=== PATIENT | female | born 1955 | race Caucasian/White ===

== ENCOUNTER 2017-02-26 22:48 | Inpatient (IN) | payer OTHER ==
[~2017-02-26] VITALS: Ht 167.6 cm; Wt 92.0 kg
[2017-02-26 22:33] VITALS: O2SAT 100
[~2017-02-26 22:48] MED LIST: AMIT10TA13; ATOR10 PO; BUDE300T PO; COZA50TA PO; FENO1TAB76 PO; FENT50DI TD; INSULIN PUMP SQ; NITR4.9S3; PANT20 PO; PLAV75TA PO; SYNT25TA; TOPR25TA2 PO
[2017-02-26 22:51] VITALS: BP 71/42; PULSE 98; RESP 16; O2SAT 96
[2017-02-26] MEDS ORDERED: ETOMIDATE 20 MG/10 ML VIAL ONE (22:53)
[2017-02-26 23:05] VITALS: BP 104/57; PULSE 113; RESP 16; O2SAT 100
[2017-02-26 23:09] VITALS: BP 119/59; PULSE 119; RESP 16; O2SAT 97
[2017-02-26] MEDS ORDERED: PROPOFOL 1000 MG/100 ML INJ 100 ML ONE (23:12)
[2017-02-26 23:25] VITALS: BP 103/50; PULSE 99; RESP 14; O2SAT 100
[2017-02-26] MEDS ORDERED: ETOMIDATE 20 MG/10 ML VIAL IV PUSH ONE (23:30)
[2017-02-26] MEDS ORDERED: SODIUM CHLOR 0.9% 1000 ML INJ 1,000 ML IV ONE (23:30)
[2017-02-26] MEDS ORDERED: SUCCINYLCHOLINE CHLORIDE 200 MG/10 ML VIAL IV PUSH ONE (23:30)
[2017-02-26] MEDS ORDERED: PROPOFOL 1000 MG/100 ML INJ 100 ML IV SCH (23:30)
[2017-02-26 23:42] VITALS: BP 139/65; PULSE 112; RESP 14; TEMP 94.8; O2SAT 100
[2017-02-26 23:45] LABS: AUTOMATED NEUTROPHIL # 2.5 TH/MM3 (1.8-7.7); BASOPHIL % 0.4 % (0.0-2.0); EOSINOPHIL % 0.4 % (0.0-4.0); HEMATOCRIT 25.5 % (35.0-46.0); HEMO FLAGS DIFF FINAL; LYMPH % 31.6 % (9.0-44.0); LYMPHOCYTE # 1.4 TH/MM3 (1.0-4.8); MEAN CELL VOLUME 85.9 FL (80.0-100.0); MEAN CORPUSCULAR HEMOGLOBIN 28.2 PG (27.0-34.0); MEAN CORPUSCULAR HGB CONC 32.8 % (32.0-36.0); NEUT % 55.6 % (16.0-70.0); PLATELET COUNT 223 TH/MM3 (150-450); RED BLOOD COUNT 2.97 MIL/MM3 (4.00-5.30); WHITE BLOOD COUNT 4.6 TH/MM3 (4.0-11.0)
[2017-02-26 23:49] LABS: BLOOD, URINE NEG (NEG); COMMENT (UR) CATH-CULT NOT IND; CULTURE IF INDICATED CATH CULTURE NOT IND; GLUCOSE,URINE NEG (NEG); KETONE, URINE NEG (NEG); MUCUS URINE FEW /lpf (OCC); NITRITE,URINE NEG (NEG); PH, URINE 5.5 (5.0-8.5); URINE COLOR YELLOW (YELLW/STRAW)
[2017-02-26 23:50] LABS: ANION GAP 12 MEQ/L (5-15); BICARBONATE 22.5 MEQ/L (21.0-32.0); BLOOD UREA NITROGEN 21 MG/DL (7-18); CHLORIDE 104 MEQ/L (98-107); GLOMERULAR FILTRATION RATE 35 ML/MIN (>89); POTASSIUM 3.5 MEQ/L (3.5-5.1); SODIUM (NA) 138 MEQ/L (136-145)
[2017-02-26 23:55] LABS: BLOOD GAS BASE EXCESS -3.2 mmol/L (-2-2); BLOOD GAS CARBOXYHEMOGLOBIN 0.9 % (0-4); BLOOD GAS HCO3 21 mmol/L (22-26); BLOOD GAS METHEMOGLOBIN 1.2 % (0-2); BLOOD GAS O2 HGB SATURATION 96 % (90-100); BLOOD GAS OXYGEN CONTENT 13.8 Vol % (12.0-20.0); BLOOD GAS PCO2 37 mmHg (38-42); BLOOD GAS PO2 160 mmHG (61-120); CRITICAL VALUE NO; DRAW SITE RT BRACHIAL; FIO2 50 %; NUMBER OF ARTERIAL PUNCTURES 1; OXYGEN DEVICE VENTILATOR; STAT YES; TEMP CORR TO 98.6; VENT SETTINGS AC14/550/5PEEP
--- NOTE | 2017-02-26 23:56 | HHI.HP ---
[facility] Service Critical Care Medicine Primary Care Physician Keon Palmer MD, PhD Admission Diagnosis acute resp failure, unresponsive Diagnosis: Travel History International Travel<30 Days: No Contact w/Intl Traveler <30 Da: No Traveled to Known Affected Are: No History of Present Illness 61-year-old female with past medical history of diabetes coronary artery disease dyslipidemia hypothyroidism previously hyperthyroidism treated with radioactive iodine, presents now with altered mental status and unresponsiveness. She was intubated in the emergency department for airway protection as well severe hypoxemia. She presented hypotensive however shortly after intubation and stabilization of her airway and oxygenation her blood pressure improved with a MAP above 65. Patient is comatose unresponsive and no history obtainable at this time Review of Systems ROS Unable to obtain due to patient's mental status and intubation Past Family Social History Allergies: Coded Allergies: Aspirin (Verified Allergy, Severe, 09/01/15) Nonsteroidal Anti-Inflammatory Agts (Verified Allergy, Severe, 09/01/15) Penicillin (Verified Allergy, Severe, 09/01/15) Past Medical History Coronary artery disease Diabetes mellitus with insulin pump Dyslipidemia Past Surgical History Multiple tendon the knee shoulder surgeries Reported Medications Reported Meds & Active Scripts Active Reported Synthroid (Levothyroxine Sodium) 200 Mcg Tab 200 Mcg PO DAILY Bupropion Sr 12 HR (Bupropion ER 12 HR (Smoking Deterrent)) 150 Mg Tab 300 Mg PO DAILY Take 1 tablet daily x 3 days then twice daily thereafter. Keflex (Cephalexin) 250 Mg Cap 500 Mg PO Q6H Bactrim DS (Sulfamethoxazole-Trimethoprim) 800-160 Mg Tab 1 Tab PO BID [Insulin Pump] .8 SQ DIRECTED HUMALOG BASAL INFUSION .8/HR WITH PRN BOLUSES Active Ordered Medications Current Medications Medications (Trade) Dose Ordered Sig/Rusty Route PRN Reason Start Time Stop Time Status Last Admin Dose Admin Sodium Chloride (NS 1000 ml Inj) 1,000 ml @ 84 mls/hr [id number] IV 02/26/17 23:56 02/27/17 00:22 Sodium Chloride (NS Flush) 2 ml UNSCH PRN .XX FLUSH AFTER USING IV ACCESS 02/27/17 00:00 Sodium Chloride (NS Flush) 2 ml BID .XX 02/27/17 09:00 Acetaminophen (Tylenol) 650 mg Q6H PRN PO PAIN 1-10 AND/OR FEVER >101F 02/27/17 00:00 Morphine Sulfate (Morphine Inj) 2 mg Q2H PRN IV PAIN SCALE 6 TO 10 02/27/17 00:00 Famotidine (Pepcid Inj) 20 mg Q12HR IV PUSH 02/27/17 09:00 Lorazepam (Ativan Inj) 2 mg Q4H PRN IV Agitation/Sedation 02/27/17 00:00 Ondansetron HCl (Zofran Inj) 4 mg Q6H PRN IV NAUSEA OR VOMITING 02/27/17 00:00 Metoclopramide HCl (Reglan Inj) 10 mg Q6H PRN IV NAUSEA OR VOMITING 02/27/17 00:00 Heparin Sodium (Porcine) (Heparin Inj) 5,000 units Q8H SQ 02/27/17 00:00 02/27/17 00:22 Miscellaneous Information 1 Q361D XX 02/27/17 00:00 Chlorhexidine Gluconate (Chlorhexidine 2% Cloth) 3 pack Taper DAILY@04 TOP 02/27/17 04:00 02/23/18 03:59 Chlorhexidine Gluconate (Chlorhexidine 2% Cloth) 3 pack UNSCH PRN TOP HYGIENIC CARE 02/27/17 00:00 Senna/Docusate Sodium (Ankita-Colace) 1 tab BID PO 02/27/17 09:00 Magnesium Hydroxide (Milk Of Magnesia Liq) 30 ml Q12H PRN PO MILD - MODERATE CONSTIPATION 02/27/17 00:00 Sennosides (Senokot) 17.2 mg Q12H PRN PO MODERATE - SEVERE CONSTIPATION 02/27/17 00:00 Bisacodyl (Dulcolax Supp) 10 mg DAILY PRN RECTAL SEVERE CONSITIPATION 02/27/17 00:00 Lactulose 30 ml 30 ml DAILY PRN PO SEVERE CONSITIPATION 02/27/17 00:00 Propofol (Diprivan 1000 Mg/100ml Inj) 100 ml @ 0 mls/hr TITRATE IV 02/27/17 00:00 Family History Noncontributory Social History Negative for alcohol smoking and illicit drug Physical Exam Vital Signs Vital Signs Date Time Temp Pulse Resp B/P Pulse Ox O2 Delivery O2 Flow Rate FiO2 02/26/17 23:42 94.8 112 14 139/65 100 02/26/17 23:25 99 14 103/50 100 02/26/17 23:10 50 5/29/17 23:09 119 16 119/59 97 02/26/17 23:05 113 16 104/57 100 02/26/17 23:04 16 02/26/17 22:51 98 16 71/42 96 02/26/17 22:33 100 50 Physical Exam GENERAL: Obese comatose patient SKIN: Warm and dry. HEAD: Normocephalic. EYES: No scleral icterus. No injection or drainage. NECK: Supple, trachea midline. No JVD or lymphadenopathy. CARDIOVASCULAR: Regular rate and rhythm without murmurs, gallops, or rubs. RESPIRATORY: Breath sounds equal bilaterally. No accessory muscle use. GASTROINTESTINAL: Abdomen soft, non-tender, nondistended. MUSCULOSKELETAL: No cyanosis, or edema. BACK: Nontender without obvious deformity. No CVA tenderness. EXTREMITIES: No clubbing cyanosis or edema Laboratory Laboratory Tests Test 02/26/17 23:20 White Blood Count 4.6 Red Blood Count 2.97 Hemoglobin 8.4 Hematocrit 25.5 Mean Corpuscular Volume 85.9 Mean Corpuscular Hemoglobin 28.2 Mean Corpuscular Hemoglobin 32.8 Concent Red Cell Distribution Width 14.0 Platelet Count 223 Mean Platelet Volume 8.3 Neutrophils (%) (Auto) 55.6 Lymphocytes (%) (Auto) 31.6 Monocytes (%) (Auto) 12.0 Eosinophils (%) (Auto) 0.4 Basophils (%) (Auto) 0.4 Neutrophils # (Auto) 2.5 Lymphocytes # (Auto) 1.4 Monocytes # (Auto) 0.5 Eosinophils # (Auto) 0.0 Basophils # (Auto) 0.0 CBC Comment DIFF FINAL Differential Comment Urine Color YELLOW Urine Turbidity CLEAR Urine pH 5.5 Urine Specific Matthews 1.012 Urine Protein NEG Urine Glucose (UA) NEG Urine Ketones NEG Urine Occult Blood NEG Urine Nitrite NEG Urine Bilirubin NEG Urine Urobilinogen LESS THAN 2.0 Urine Leukocyte Esterase NEG Urine RBC 1 Urine WBC 1 Urine Mucus FEW Microscopic Urinalysis Comment CATH-CULT NOT IND Sodium Level 138 Potassium Level 3.5 Chloride Level 104 Carbon Dioxide Level 22.5 Anion Gap 12 Blood Urea Nitrogen 21 Creatinine 1.52 Estimat Glomerular Filtration 35 Rate Random Glucose 262 Calcium Level 8.2 Result Diagram: 02/26/17 23202/26/172319 Assessment and Plan Assessment and Plan Acute respiratory failure - Intubated for an airway protection - Continue mechanical ventilation - No weaning until neurologically improved Non-ST TN - Possibly due to hypoxemia from respiratory failure - Monitor troponin trend - No acute EKG changes - Heparin drip - Cardiology consult - Allergic to aspirin - Cannot start the beta aislinn due to low blood pressure - Statins Altered mental status - CT head negative - Drug screen negative - Admit to ICU - Neuro checks per unit protocol - Improving with intubation and better oxygenation Diabetes mellitus - Stopped insulin pump while nothing by mouth - Insulin sliding scale Dyslipidemia - Atorvastatin DVT GI prophylaxis - Heparin drip and Pepcid Critical Care: The total critical care time was 35 minutes. Time to perform other separately billable procedures was not included in the critical care time. Ranjan Troy MD February 26, 2017 23:56
[2017-02-26 23:57] LABS: AMPHETAMINE, URINE NEG (NEG); BARBITURATES, URINE NEG (NEG); COCAINE, URINE NEG (NEG); CREATINE KINASE 121 U/L (26-192)
[2017-02-27] VITALS (20 sets, daily range): BP systolic 107–250; BP diastolic 44–81; PULSE 84–112; RESP 14–21; TEMP 94.8–99; O2SAT 100
[2017-02-27] MEDS ORDERED: ONDANSETRON HCL 4 MG/2 ML VIAL IV PRN
[2017-02-27] MEDS ORDERED: CHLORHEXIDINE GLUCONATE 2 % 1 PACK (2 CLOTHS) TOP PRN
[2017-02-27] MEDS ORDERED: BISACODYL 10 MG SUPP RECTAL PRN
[2017-02-27] MEDS ORDERED: MISCELLANEOUS NURSING INFORMATION XX SCH
[2017-02-27] MEDS ORDERED: METOCLOPRAMIDE HCL 10 MG/2 ML VIAL IV PRN
[2017-02-27] MEDS ORDERED: SODIUM CHLORIDE 0.9% FLUSH 10 ML FLUSH PRN
[2017-02-27] MEDS ORDERED: HEPARIN SODIUM - SQ 10,000 UNITS/ML VIAL SQ SCH
[2017-02-27] MEDS ORDERED: LORazepam 2 MG/ML VIAL IV PRN
[2017-02-27] MEDS ORDERED: LACTULOSE SYRUP 20 GM/30 ML CUP PO PRN
[2017-02-27] MEDS ORDERED: SENNOSIDES 8.6 MG TAB PO PRN
[2017-02-27] MEDS ORDERED: MAGNESIUM HYDROXIDE SUSP 30 ML CUP PO PRN
[2017-02-27] MEDS ORDERED: RESP: ALBUTEROL 2.5 MG/IPRATROPIUM 0.5 MG NEB (PRN) INH
--- NOTE | 2017-02-27 00:03 | RADRPT ---
EXAM DATE/TIME: 02/26/2017 23:27 [facility] COMPARISON: No previous studies available for comparison. INDICATIONS : Chest pain. Post procedure. Post intubation. MEDICAL HISTORY : None. SURGICAL HISTORY : None. ENCOUNTER: Initial ACUITY: 1 day PAIN SCORE: 0/10 LOCATION: Bilateral chest FINDINGS: Endotracheal tube is present with tip 4-5 cm above the logan. Nasogastric tube descends into the sto mach. There is minimal parenchymal opacity at the left lung base. Right lung is grossly clear. Cardia c contours are satisfactory for technique and projection. CONCLUSION: Satisfactory ET tube position. Mild left base parenchymal opacity. Best Villanueva MD on February 27, 2017 at 0:00 Board Certified Radiologist. This report was verified electronically.
[2017-02-27 00:11] LABS: CKMB 2.7 NG/ML (0.5-3.6)
--- NOTE | 2017-02-27 00:12 | PD ---
HPI Chief Complaint: Respiratory Distress Time Seen by Provider: 23:16 Travel History International Travel<30 days: No Contact w/Intl Traveler<30days: No Traveled to known affect area: No History of Present Illness HPI This patient arrives critically ill. Paramedics brought her here in profound distress with no airway. Chief complaint wasn't altered mental status and she became completely unresponsive even to painful stimuli. She can provide no useful history or review of systems. She arrives to the blood pressure of 80 and tachycardic and saturations in the 50s PFSH Past Medical History Hx Anticoagulant Therapy: Yes (PLAVIX) Depression: Yes Cardiac Catheterization: Yes (X 5) Cardiovascular Problems: Yes (2004) High Cholesterol: Yes Chest Pain: Yes Coronary Artery Disease: Yes Diabetes: Yes (TYPE 1, insulin pump) Patient Takes Glucophage: No GERD: Yes Hypertension: Yes Myocardial Infarction: Yes Thyroid Disease: Yes Tetanus Vaccination: Unknown ?: Unknown LMP: unknown Past Surgical History Cardiac Surgery: Yes Section: Yes (X3) Cholecystectomy: Yes Coronary Stent: Yes (X6) Eye Surgery: Yes (BILATERAL CATARACTS) Hysterectomy: Yes Insulin Pump: Yes (HUMALOG CONTINUOUS INFUSION SQ) Tonsillectomy: Yes Other Surgery: Yes (MULTIPLE ORTHOPEDIC SURGERIES TO REMOVE SCAR TISSUE;SINUS SURGERY) Social History Alcohol Use: No (unknown) Tobacco Use: No (unknown ) Substance Use: No Allergies-Medications (Allergen,Severity, Reaction): Coded Allergies: Aspirin (Verified Allergy, Severe, 09/01/15) Nonsteroidal Anti-Inflammatory Agts (Verified Allergy, Severe, 09/01/15) Penicillin (Verified Allergy, Severe, 09/01/15) Reported Meds & Prescriptions Reported Meds & Active Scripts Active Reported [Insulin Pump] .8 SQ DIRECTED HUMALOG BASAL INFUSION .8/HR WITH PRN BOLUSES Review of Systems ROS Limitations: Clinical Condition, Altered Mental Status, Unresponsive Physical Exam Narrative GENERAL: Well-nourished, well-developed patient who is unresponsive. SKIN: Focused skin assessment reveals no rash and nodules. Skin is Warm and dry. HEAD: Atraumatic. Normocephalic. EYES: Pupils equal and round. No scleral icterus. No injection or drainage. ENT: No nasal bleeding or discharge. Mucous membranes pink and moist. She has a huge thick tongue. NECK: Trachea midline. No JVD. CARDIOVASCULAR: Regular rate and rhythm. No murmur appreciated. Tachycardic RESPIRATORY: Minimal respiratory effort. Diminished breath sounds bilaterally. No wheezing. GASTROINTESTINAL: Abdomen soft, non-tender, nondistended. Hepatic and splenic margins not palpable. MUSCULOSKELETAL: No obvious deformities. No clubbing. No cyanosis. No edema. NEUROLOGICAL: Unresponsive. No gag reflex. No response to pain stimuli. Jaws clenched. Impossible to test motor strength or sensation PSYCHIATRIC: Impossible to test mood or affect or insight or judgment. Data Data Last Documented VS Vital Signs Date Time Temp Pulse Resp B/P Pulse Ox O2 Delivery O2 Flow Rate FiO2 02/26/17 23:42 94.8 112 14 139/65 100 02/26/17 23:10 50 Orders Etomidate Inj (Amidate Inj) (02/26/17 22:53) Propofol 1000 Mg/100 Ml Inj (Diprivan 10 (02/26/17 23:12) Chest, Single Ap (02/26/17 ) Ct Brain W/O Iv Contrast(Rout) (02/26/17 ) Complete Blood Count With Diff (02/26/17 23:16) Basic Metabolic Panel (Bmp) (02/26/17 23:16) Ckmb (Isoenzyme) Profile (02/26/17 23:16) Troponin I (02/26/17 23:16) Arterial Blood Gas (Abg) (02/26/17 ) Urinalysis - C+S If Indicated (02/26/17 23:16) Urinary Catheter Insert/Apply (02/26/17 23:16) Lynn-Gastric Tube Insert/Mon (02/26/17 23:16) Propofol 1000 Mg/100 Ml Inj (Diprivan 10 (02/26/17 23:30) ^ Infusion (02/26/17 23:19) RASS (02/26/17 23:19) Neurological Rass Scale JEFF.Q2H (02/26/17 23:19) Succinylcholine Inj (Quelicin Inj) (02/26/17 23:30) Etomidate Inj (Amidate Inj) (02/26/17 23:30) Drug Screen, Random Urine (02/26/17 23:28) Sodium Chlor 0.9% 1000 Ml Inj (Ns 1000 M (02/26/17 23:30) Alcohol (Ethanol) (02/26/17 23:20) Admit Order (Ed Use Only) (02/26/17 23:43) CKMB (02/26/17 23:20) CKMB% (02/26/17 23:20) Labs Laboratory Tests Test 02/26/17 02/26/17 23:20 23:45 White Blood Count 4.6 TH/MM3 Red Blood Count 2.97 MIL/MM3 Hemoglobin 8.4 GM/DL Hematocrit 25.5 % Mean Corpuscular Volume 85.9 FL Mean Corpuscular Hemoglobin 28.2 PG Mean Corpuscular Hemoglobin 32.8 % Concent Red Cell Distribution Width 14.0 % Platelet Count 223 TH/MM3 Mean Platelet Volume 8.3 FL Neutrophils (%) (Auto) 55.6 % Lymphocytes (%) (Auto) 31.6 % Monocytes (%) (Auto) 12.0 % Eosinophils (%) (Auto) 0.4 % Basophils (%) (Auto) 0.4 % Neutrophils # (Auto) 2.5 TH/MM3 Lymphocytes # (Auto) 1.4 TH/MM3 Monocytes # (Auto) 0.5 TH/MM3 Eosinophils # (Auto) 0.0 TH/MM3 Basophils # (Auto) 0.0 TH/MM3 CBC Comment DIFF FINAL Differential Comment Urine Color YELLOW Urine Turbidity CLEAR Urine pH 5.5 Urine Specific Sandy 1.012 Urine Protein NEG mg/dL Urine Glucose (UA) NEG mg/dL Urine Ketones NEG mg/dL Urine Occult Blood NEG Urine Nitrite NEG Urine Bilirubin NEG Urine Urobilinogen LESS THAN 2.0 MG/DL Urine Leukocyte Esterase NEG Urine RBC 1 /hpf Urine WBC 1 /hpf Urine Mucus FEW /lpf Microscopic Urinalysis Comment CATH-CULT NOT IND Sodium Level 138 MEQ/L Potassium Level 3.5 MEQ/L Chloride Level 104 MEQ/L Carbon Dioxide Level 22.5 MEQ/L Blood Urea Nitrogen 21 MG/DL Creatinine 1.52 MG/DL Random Glucose 262 MG/DL Calcium Level 8.2 MG/DL Urine Opiates Screen NEG Urine Barbiturates Screen NEG Urine Amphetamines Screen NEG Urine Benzodiazepines Screen NEG Urine Cocaine Screen NEG Urine Cannabinoids Screen NEG Anion Gap 12 MEQ/L Estimat Glomerular Filtration 35 ML/MIN Rate Total Creatine Kinase 121 U/L Creatine Kinase MB 2.7 NG/ML Troponin I 2.94 NG/ML Ethyl Alcohol Level LESS THAN 3 MG/DL Blood Gas Puncture Site RT BRACHIAL Blood Gas Patient Temperature 98.6 Blood Gas HCO3 21 mmol/L Blood Gas Base Excess -3.2 mmol/L Blood Gas Oxygen Saturation 96 % Arterial Blood pH 7.37 Arterial Blood Partial 37 mmHg Pressure CO2 Arterial Blood Partial 160 mmHG Pressure O2 Arterial Blood Oxygen Content 13.8 Vol % Arterial Blood 0.9 % Carboxyhemoglobin Arterial Blood Methemoglobin 1.2 % Blood Gas Hemoglobin 10.0 G/DL Oxygen Delivery Device VENTILATOR Blood Gas Ventilator Setting AC14/550/5PEEP Blood Gas Inspired Oxygen 50 % [facility] Medical Decision Making Medical Screen Exam Complete: Yes Emergency Medical Condition: Yes Medical Record Reviewed: Yes Differential Diagnosis Hypoxemic brain injury, acute respiratory failure, intracranial hemorrhage Narrative Course I have reviewed the patient's electronic medical record. Was last here in 2014 Patient is extremely critical Is hypotensive and very hypoxic 2 IVs placed I needed to obtain airway is the first priority She was a very challenging intubation No way to obtain consent but it is very emergent I gave her 30 mg IV etomidate and 100 mg IV succinylcholine Placed 2 folded sheets under her shoulders She has a huge thick tongue and could not visualize properly with Mullen blade I used a 4 Davies blade with a kaleidoscope which could visualize her cords but I was unable to pass the ET tube through the opening I used a smaller tube down to a 70 which was still difficult I asked for anesthesia assistance and anesthesiologist came down and was able to intubate I reviewed the post admission chest x-ray which shows good placement Gave her a liter of normal saline IV and started Diprivan Oxygenation came up to 100% saturation on the vent and blood pressure came up to 110 systolic and heart rate came down to 100 sinus rhythm I reviewed the ABG which shows pH 7.37 and a PO2 of 150 CBC shows anemia Metabolic profile doesn't show anything emergent Urinalysis is clean Alcohol is negative Tox screen is negative CK is normal Troponin is 2.94 I reviewed her EKG which shows sinus rhythm but there are no acute ST elevations to suggest STEMI Brain CT is normal I reviewed the case with Dr. Troy, head of ict who will admit to intensive care on ventilator. Patient had acute respiratory failure and was unresponsive and troponin suggests a non-STEMI. Patient is critically ill Dr. Troy will take over and decide how to address the troponin. We discussed aspirin/nitrate/beta-blockade. At this time her blood pressure is now risen to 160 systolic so she could tolerate those things Unclear if her brain suffered hypoxemic injury as she was poorly oxygenating for quite some time. Critical Care Narrative Aggregate critical care time was 82 minutes. Time to perform other separately billable procedures was not included in the critical care time. My time did not include minutes spent treating any other patients simultaneously or on activities that did not directly contribute to the patient's treatment. The services I provided to this patient were to treat and/or prevent clinically significant deterioration that could result in: Hypoxemic brain injury, cardiopulmonary arrest, brain stem herniation I provided critical care services requiring my management, as noted below: Chart data review, documentation time, medication orders and management, vital sign assessments/reviewing monitor data, ordering and reviewing lab tests, ordering and interpreting/reviewing x-rays and diagnostic studies, care of the patient and discussion of the patient with the admitting physicians. Diagnosis Primary Impression: Acute respiratory failure with hypoxia Additional Impressions: Unresponsive Hypotension Qualified Code: I95.9 - Hypotension, unspecified hypotension type Non-STEMI (non-ST elevated myocardial infarction) Admitting Information Admitting Physician Requests: Gilbert Mendez MD February 27, 2017 00:12
[2017-02-27] MEDS: SODIUM CHLOR 0.9% 1000 ML INJ 1,000 ML IV SCH ×2 (00:22→14:50)
[2017-02-27] MEDS ORDERED: LEVO.2 PO (00:31)
[2017-02-27] MEDS ORDERED: BACT800T5 PO (00:31)
[2017-02-27] MEDS ORDERED: CEPH-459 PO (00:31)
[2017-02-27] MEDS ORDERED: BUPR150T12 PO (00:31)
--- NOTE | 2017-02-27 01:01 | RADRPT ---
EXAM DATE/TIME: 02/27/2017 00:46 [facility] COMPARISON: CT BRAIN W/O CONTRAST, September 01, 2015, 16:43. INDICATIONS : Altered mental status. RADIATION DOSE: 49.56 CTDIvol (mGy) MEDICAL HISTORY : Cardiovascular disease. Gastroesophageal reflux disease. Hypertension.Coronary artery disease. SURGICAL HISTORY : Cholecystectomy. Hysterectomy.Coronary stent. ENCOUNTER: Initial ACUITY: 1 day PAIN SCALE: Non-responsive LOCATION: cranial TECHNIQUE: Multiple contiguous axial images were obtained of the head. Using automated exposure control and adj ustment of the mA and/or kV according to patient size, radiation dose was kept as low as reasonably a chievable to obtain optimal diagnostic quality images. FINDINGS: CEREBRUM: The ventricles are normal for age. No evidence of midline shift, mass lesion, hemorrhage or acute in farction. No extra-axial fluid collections are seen. POSTERIOR FOSSA: The cerebellum and brainstem are intact. The 4th ventricle is midline. The cerebellopontine angle i s unremarkable. EXTRACRANIAL: The visualized portion of the orbits is intact. Mild mucosal thickening in occasional facial sinuses. SKULL: The calvaria is intact. No evidence of skull fracture. CONCLUSION: No acute intracranial findings. Best Villanueva MD on February 27, 2017 at 0:57 Board Certified Radiologist. This report was verified electronically.
[2017-02-27] MEDS ORDERED: CLOP75TA PO (01:12)
[2017-02-27] MEDS ORDERED: MULTTAB67 PO (01:12)
[2017-02-27] MEDS ORDERED: PROT40TA PO (01:12)
[2017-02-27] MEDS ORDERED: FISH1000 (01:12)
[2017-02-27] MEDS ORDERED: ISOS30TA3 PO (01:12)
[2017-02-27] MEDS ORDERED: LOSA100T PO (01:12)
[2017-02-27] MEDS ORDERED: calcium PO (01:12)
[2017-02-27] MEDS ORDERED: FENO160T PO (01:12)
[2017-02-27] MEDS ORDERED: METO50TA11 PO (01:12)
[2017-02-27] MEDS ORDERED: ATOR40TA16 PO (01:12)
[2017-02-27] MEDS ORDERED: AMIT50TA3 PO (01:12)
[2017-02-27] MEDS ORDERED: MIDAZOLAM HCL 5 MG/ML VIAL (1 ML) ONE (02:00)
[2017-02-27] MEDS ORDERED: MIDAZOLAM HCL 2 MG/2 ML VIAL IV SCH (02:30)
[2017-02-27] MEDS: CHLORHEXIDINE GLUCONATE 2 % 1 PACK (2 CLOTHS) TOP SCH (03:21)
[2017-02-27 03:25] LABS: MRSA PCR NEGATIVE (NEGATIVE); STAPH AUREUS PCR POSITIVE (NEGATIVE)
[2017-02-27] MEDS: RESP: ALBUTEROL 2.5 MG/IPRATROPIUM 0.5 MG NEB (SCH) INH ×4 (03:52→22:15)
[2017-02-27] MEDS ORDERED: MIDAZOLAM 100 MG/ML INJ 100 ML IV SCH (04:15)
[2017-02-27 04:48] LABS: HEMATOCRIT 33.1 % (35.0-46.0); MEAN CELL VOLUME 85.6 FL (80.0-100.0); MEAN CORPUSCULAR HEMOGLOBIN 27.9 PG (27.0-34.0); MEAN CORPUSCULAR HGB CONC 32.6 % (32.0-36.0); PLATELET COUNT 195 TH/MM3 (150-450); RED BLOOD COUNT 3.87 MIL/MM3 (4.00-5.30); RED CELL DISTRIBUTION WIDTH 14.2 % (11.6-17.2); REVIEW FLAG FINAL; WHITE BLOOD COUNT 5.2 TH/MM3 (4.0-11.0)
[2017-02-27 04:57] LABS: PROTHROMBIN TIME - PATIENT 11.2 SEC (9.8-11.6)
[2017-02-27] MEDS: HEPARIN-D5W INJ 250 ML IV SCH ×2 (05:08→21:28)
[2017-02-27] MEDS: fentaNYL DRIP 250 ML IV SCH ×2 (05:09→16:22)
[2017-02-27] MEDS ORDERED: DEXTROSE 50% IN WATER 50 ML VIAL(D50) IV PRN (05:45)
[2017-02-27] MEDS ORDERED: GLUCAGON 1 MG/ML VIAL OTHER PRN (05:45)
[2017-02-27] MEDS: PROPOFOL 1000 MG/100 ML INJ 100 ML IV SCH ×2 (06:46→21:08)
[2017-02-27] MEDS: INSULIN ASPART SUPPLEMENTAL SCALE SQ SCH ×4 (08:05→21:00)
--- NOTE | 2017-02-27 08:11 | EKG ---
Date Performed: 02/26/2017 Time Performed: 22:54:09 PTAGE: 61 years EKG: SINUS TACHYCARDIA BORDERLINE RIGHT AXIS DEVIATION INCOMPLETE RIGHT BUNDLE BRANCH BLOCK ST D EPRESSION, CONSIDER INFERIOR AND LATERAL ISCHEMIA ABNORMAL ECG PREVIOUS TRACING : 04/09/2007 06.32 Compared to previous tracing, right bundle branch block pat tern is now present, inferior and lateral ST/T changes are now evident. DOCTOR: Josef Gonzalez Interpretating Date/Time 02/27/2017 08:10:19
--- NOTE | 2017-02-27 08:12 | HHI.CCPN ---
Subjective Remarks/Hospital Course 61-year-old female with past medical history of diabetes coronary artery disease dyslipidemia hypothyroidism previously hyperthyroidism treated with radioactive iodine, presents now with altered mental status and unresponsiveness. She was intubated in the emergency department for airway protection as well severe hypoxemia. She presented hypotensive however shortly after intubation and stabilization of her airway and oxygenation her blood pressure improved with a MAP above 65. Patient is comatose unresponsive and no history obtainable at this time 02/27: This episode apparently followed ingestion of Bactrim -> difficulty breathing -> unresponsive. I suspect she became hypoxemic. Cellulitis persists. LLL infiltrate. Objective Vital Signs Date Time Temp Pulse Resp B/P Pulse Ox O2 Delivery O2 Flow Rate FiO2 02/27/17 04:00 99.0 104 14 115/58 100 02/27/17 03:52 50 Result Diagram: 02/27/17 0439 02/26/17 2320 Other Results Laboratory Tests Test 02/26/17 23:45 Blood Gas Puncture Site RT BRACHIAL Blood Gas Patient Temperature 98.6 Blood Gas HCO3 21 mmol/L (22-26) Blood Gas Base Excess -3.2 mmol/L (-2-2) Blood Gas Oxygen Saturation 96 % (90-100) Arterial Blood pH 7.37 (7.380-7.420) Arterial Blood Partial 37 mmHg (38-42) Pressure CO2 Arterial Blood Partial 160 mmHG Pressure O2 (61-120) Arterial Blood Oxygen Content 13.8 Vol % (12.0-20.0) Arterial Blood 0.9 % (0-4) Carboxyhemoglobin Arterial Blood Methemoglobin 1.2 % (0-2) Blood Gas Hemoglobin 10.0 G/DL (12.0-16.0) Oxygen Delivery Device VENTILATOR Blood Gas Ventilator Setting AC14/550/5PEEP Blood Gas Inspired Oxygen 50 % Imaging CXR: LLL infiltrate Objective Remarks GENERAL: Obese comatose patient SKIN: Warm and dry. HEAD: Normocephalic. EYES: No scleral icterus. No injection or drainage. NECK: Supple, trachea midline. Orally intubated. CARDIOVASCULAR: Regular rate and rhythm without murmurs, gallops, or rubs. RESPIRATORY: Breath sounds equal bilaterally. Clear. GASTROINTESTINAL: Abdomen soft, non-tender, nondistended. MUSCULOSKELETAL: No cyanosis, or edema. Well perfused. BACK: Nontender without obvious deformity. No CVA tenderness. EXTREMITIES: No clubbing cyanosis or edema. Mild cellulitis right lower leg. NEURO: Moves 4 limbs. A/P Assessment and Plan Acute respiratory failure - Intubated for an airway protection - Continue mechanical ventilation - No weaning until neurologically improved Non-ST AL - Possibly due to hypoxemia from respiratory failure - Monitor troponin trend - No acute EKG changes - Heparin drip - Cardiology consult - Allergic to aspirin - Cannot start the beta aislinn due to low blood pressure - Statins Altered mental status - CT head negative - Drug screen negative - Admit to ICU - Neuro checks per unit protocol - Improving with intubation and better oxygenation Diabetes mellitus - Stopped insulin pump while nothing by mouth - Insulin sliding scale Dyslipidemia - Atorvastatin DVT GI prophylaxis - Heparin drip and Pepcid Cellulitis right leg - ABX: Ceftriaxone, Levaquin Day #1 Overall impression: Patient remains critically ill with new neurological deterioration following apparent respiratory arrest. Critically Care 40 mins Jack Bella MD February 27, 2017 08:12
[2017-02-27] MEDS ORDERED: ASPIRIN 325 MG TAB PO SCH (09:00)
[2017-02-27] MEDS: DOCUSATE SODIUM 50 MG/SENNA 8.6 MG TAB PO SCH ×2 (09:00→21:03)
[2017-02-27] MEDS: cefTRIAXone INJ 1,000 MG in SODIUM CHLORIDE 0.9% INJ 100 ML IV SCH (09:38)
[2017-02-27] MEDS: FAMOTIDINE 20 MG/2 ML VIAL IV PUSH SCH ×2 (09:39→21:03)
[2017-02-27] MEDS: CLOPIDOGREL 75 MG TAB PO SCH (09:40)
[2017-02-27] MEDS: SODIUM CHLORIDE 0.9% FLUSH 10 ML FLUSH SCH ×2 (09:40→21:00)
[2017-02-27] MEDS ORDERED: LEVOFLOXACIN 750 MG PREMIX INJ 150 ML IV SCH (10:00)
[2017-02-27] MEDS ORDERED: HEPARIN SODIUM - IV 10,000 UNITS/10 ML VIAL IV PRN ×2 (10:15)
--- NOTE | 2017-02-27 10:32 | MB ---
cc: HAN CASTRO DO DATE OF CONSULTATION: February 27, 2017 REASON FOR CONSULTATION: Elevated troponin HISTORY OF PRESENT ILLNESS Jaye Lane is a 61-year-old female who presented to [facility] on February 26, 2017 with altered mental status, unresponsiveness and shortness of breath. Per the the patient was given Keflex and Bactrim for a lower extremity cellulitis. She took the first dose 20 minutes later it appears that she was hypoxic and unresponsive. On arrival to the emergency room she had a blood pressure of 71/42, but after being intubated her blood pressure responded and since then she has been mostly normotensive with some hypertensive episodes. She is currently on no pressors. The patient is currently intubated and unable to give any information so information is taken from the chart and from nursing staff. Per the nurse, the patient's GCS on arrival of EMS was 15 but then deteriorated to 3 and she was intubated. PAST MEDICAL HISTORY 1. Coronary artery disease. 2. Diabetes mellitus with insulin pump. 3. Dyslipidemia. PAST SURGICAL HISTORY: 1. Cardiac catheterization (April 09, 2007) left main has mild luminal irregularities. LAD has at least diffuse moderate disease throughout the whole went to the vessel particularly in the mid to distal vessel with multiple areas of narrowing of 70% and at times slightly greater. Intermediate ramus is a tiny in diffusely severely diseased graft vessel. Circumflex is nondominant supplying to obtuse marginal branches. Marginal branches are diffusely narrowed at least 50-70%, possibly more. RCA is dominant with three previously placed stents in the proximal vessel. A 50-60% narrowing in the midvessel within a previously placed stent. Recommended for medical management. 2. C section. 3. Cholecystectomy. 4. Bilateral cataract surgery. 5. Hysterectomy 6. Tonsillectomy. 7. Multiple orthopedic surgeries to remove scar tissue. ALLERGIES 1. ASPIRIN. 2. NSAIDs. 3. PENICILLIN. MEDICATIONS 1. Losartan 100 mg daily 2. Amitriptyline 50 mg every night 3. BP on 300 mg daily 4. Toprol XL 50 mg daily 5. Fenofibrate 160 mg daily 6. Lipitor 40 mg every night 7. Imdur 30 mg daily 8. Plavix 75 mg daily 9. Protonix 40 mg daily 10. Synthroid 200 mcg daily. FAMILY HISTORY Unable to obtain at this time. SOCIAL HISTORY Unable to obtain at this time. REVIEW OF SYSTEMS Unable to obtain due to the patient's critical nature and currently being start and currently intubated. PHYSICAL EXAMINATION VITAL SIGNS: Temperature 99.0, heart rate 100, blood pressure 115/50, respirations 14, pulse ox 100% on FIO2 of 50% on the vent. IN GENERAL: He in general the patient is currently intubated and sedated. HEAD, EYES, EARS, NOSE, AND THROAT: Pupils are equal and round. Mucous membranes moist. NECK: Supple. No JVD at 45 degrees. No carotid bruits heard bilaterally. Carotid upstroke is brisk in nature. HEART: Heart is tachycardiac but positive first and second heart sounds with no murmurs, gallops or rubs. PMI is difficult to ascertain due to body habitus. LUNGS: Lungs have decreased breath sounds bilaterally but no overt wheezes, rales or rhonchi. ABDOMEN: Abdomen is soft, nontender, nondistended organomegaly noted. EXTREMITIES: Show trace edema bilaterally. Left lower extremity does have some mild erythema in the lower portion. NEUROLOGIC: Difficult to assess secondary to current sedation. Osteopathic with mild lordosis. No kyphoscoliosis. LABORATORY FINDINGS Hemoglobin 10.8, hematocrit 33.1, platelets 195. Potassium 3.5, BUN 21, creatinine 1.52, troponin 2.894. Electrocardiogram (February 26, 2017 at 20-54) sinus tachycardia, borderline right axis deviation, incomplete right bundle branch block, mild ST depressions inferior laterally possibly due to ischemia. IMPRESSION 1. Acute respiratory failure possibly due to allergic reaction to Keflex or Bactrim. 2. Vent dependent respiratory failure. 3. NSTEMI possibly type 1 vs type 2 due to hypoxemia. 4. Altered mental status possibly due to hypoxemia. 5. Diabetes mellitus. 6. Dyslipidemia. 7. Known coronary artery disease as above for medical treatment. RECOMMENDATIONS 1. Mrs. Lane had a hypoxemic event which may have led to her current state. This is felt that possibly due to a reaction to Keflex vs Bactrim 2. She is currently hemodynamically stable on the vent. 3. As far as her coronary artery disease, and NSTEMI she does have an aspirin allergy and so we will avoid this at this time. 4. We will continue her on a heparin drip. 5. We will also continue her on her Plavix 75 mg daily. 6. We will wait to see if there is neurological return of function, post hypoxemic event. 7. Based on the results of this as well as further testing including troponins an echocardiogram will determine possible ischemic evaluation. If need for coronary visualization, she will need to undergo consideration of an aspirin desensitization process, although we further have to elicit what her aspirin allergy is. 8. Further recommendations will be made based on the hospital course. Thank you for allowing me to see Jaye Lane if there are any questions please do not hesitate to call. Han Castro DO VGP/mh /8:38 AM /8:56 AM MTDD
[2017-02-27 13:42] LABS: APTT (PATIENT) 36.9 SEC (24.3-30.1)
--- NOTE | 2017-02-27 19:01 | EC ---
Study Study Date:02/27/2017 STUDY CONCLUSIONS SUMMARY - Procedure narrative: Image quality was fair. The study was technically limited due to poor acoustic window availability. - Left ventricle: The cavity size was normal. Systolic function was normal. The estimated ejection fraction was in the range of 60% to 65%. Although no diagnostic regional wall motion abnormality was identified, this possibility cannot be completely excluded on the basis of this study. Doppler parameters are consistent with abnormal left ventricular relaxation (grade 1 diastolic dysfunction). If LV function is below 40, please consider prescribing an ACEI or ARB or document rationale for non-use. PROCEDURE DATA STUDY STATUS: Elective. Procedure: Transthoracic echocardiography. Image quality was fair. The study was technically limited due to poor acoustic window availability. Scanning was performed from the parasternal, apical, and subcostal acoustic windows. Study completion: The patient tolerated the procedure well. Transthoracic echocardiography. M-mode, complete 2D, complete spectral Doppler, and color Doppler. Height: Height: 66in. Weight: Weight: 191.6lb. Body mass index: BMI: 31kg/m^2. Body surface area: BSA: 1.97m^2. Patient status: Inpatient. CARDIAC ANATOMY LEFT VENTRICLE: The cavity size was normal. Systolic function was normal. The estimated ejection fraction was in the range of 60% to 65%. Although no diagnostic regional wall motion abnormality was identified, this possibility cannot be completely excluded on the basis of this study. Doppler parameters are consistent with abnormal left ventricular relaxation (grade 1 diastolic dysfunction). AORTIC VALVE: The valve appears to be grossly normal. Doppler: There was no stenosis. No significant regurgitation. Valve area: 1.65cm^2 (Vmax). Indexed valve area: 0.84cm^2/m^2 (Vmax). MITRAL VALVE: The valve appears to be grossly normal. Doppler: There was no evidence for stenosis. No significant regurgitation. Peak gradient: 4mm Hg (D). RIGHT VENTRICLE: Not well visualized. PULMONIC VALVE: Not visualized. TRICUSPID VALVE: The valve appears to be grossly normal. Doppler: There was no evidence for stenosis. Trace regurgitation. Patient weight: 191.6lb _Ejection fraction:_ 65-75% _Fractional shortening:_ 32% up to 5Kg 5-11.5Kg 11.6-22.9Kg 23-45Kg 45-57Kg Aortic Root 7-13 <17 13-22 17-27 17-27 LA diam 6-13 <23 24-38 33-47 37-40 RVID 10-17 7-15 7-15 7-18 8-17 LVIDd 12-22 <32 24-38 33-47 37-40 LVPW 2-4 3-6 5-7 6-8 7-8 IVS 2-4 3-6 5-7 6-8 7-8 BASIC MEASUREMENTS ADULT NORMAL Left ventricle LV internal dimension, ED, chordal *33.6 mm 43-52 level, PLAX LV internal dimension, ES, chordal 25.7 mm 23-38 level, PLAX Fractional shortening, chordal level, *24 % >29 PLAX LV posterior wall thickness, ED 8.39 mm IVS/LVPW ratio, ED 1.04 <1.3 Ventricular septum Septal thickness, ED 8.73 mm Aortic valve Leaflet separation 17 mm 15-26 BASIC MEASUREMENTS ADULT NORMAL Aortic valve Leaflet separation 17 mm 15-26 Aorta Root diameter, ED 22 mm 20-37 Left atrium Anterior-posterior dimension, ES 24 mm 19-40 Anterior-posterior dimension index, ES 1.22 cm/m^2 <2.2 LA/aortic root ratio 1.09 DOPPLER MEASUREMENTS ADULT NORMAL Aortic valve Peak velocity, S 134 cm/s Valve area, Vmax 1.65 cm^2 Valve area index, Vmax 0.84 cm^2/m^2 Mitral valve Peak E-wave velocity 101 cm/s Peak A-wave velocity 116 cm/s Deceleration time *144 ms 150-230 Peak gradient, D 4 mm Hg Peak E/A ratio 0.9 Pulmonic valve Peak velocity, S 107 cm/s LEGEND: Mean values are shown as u=mean value. Asterisk (*) guido values outside specified normal range. Prepared and signed by Han Barrow [id number]
[2017-02-27 20:14] LABS: APTT (PATIENT) 78.8 SEC (24.3-30.1)
[2017-02-28] VITALS (14 sets, daily range): BP systolic 101–140; BP diastolic 52–64; PULSE 76–117; RESP 14–20; TEMP 97.9–99.3; O2SAT 95–100
[2017-02-28] MEDS: SODIUM CHLOR 0.9% 1000 ML INJ 1,000 ML IV SCH ×3 (02:35→20:46)
[2017-02-28] MEDS: RESP: ALBUTEROL 2.5 MG/IPRATROPIUM 0.5 MG NEB (SCH) INH ×2 (04:17→09:12)
[2017-02-28 04:30] LABS: BICARBONATE 24.6 MEQ/L (21.0-32.0)
[2017-02-28] MEDS: CHLORHEXIDINE GLUCONATE 2 % 1 PACK (2 CLOTHS) TOP SCH (05:21)
[2017-02-28] MEDS: INSULIN ASPART SUPPLEMENTAL SCALE SQ SCH ×4 (06:05→20:35)
[2017-02-28] MEDS: PROPOFOL 1000 MG/100 ML INJ 100 ML IV SCH (06:09)
--- NOTE | 2017-02-28 08:19 | HHI.CCPN ---
Subjective Remarks/Hospital Course 61-year-old female with past medical history of diabetes coronary artery disease dyslipidemia hypothyroidism previously hyperthyroidism treated with radioactive iodine, presents now with altered mental status and unresponsiveness. She was intubated in the emergency department for airway protection as well severe hypoxemia. She presented hypotensive however shortly after intubation and stabilization of her airway and oxygenation her blood pressure improved with a MAP above 65. Patient is comatose unresponsive and no history obtainable at this time 02/27: This episode apparently followed ingestion of Bactrim -> difficulty breathing -> unresponsive. I suspect she became hypoxemic. Cellulitis persists. LLL infiltrate. 02/28: Remains hyper-reflexic. Opens eyes but no tracking. Rigidity lowers. Objective Vital Signs Date Time Temp Pulse Resp B/P Pulse Ox O2 Delivery O2 Flow Rate FiO2 02/28/17 04:17 100 50 02/28/17 04:00 98.2 82 14 101/52 02/27/17 19:30 Mechanical Ventilator Intake and Output 02/27/17 02/27/17 02/28/17 08:00 16:00 00:00 Intake Total 405 ml 1106 ml 221 ml Output Total 760 ml 1000 ml 300 ml Balance -355 ml 106 ml -79 ml Result Diagram: 02/27/17 0439 02/28/17 0339 Imaging CXR: LLL infiltrate Objective Remarks GENERAL: Obese comatose patient SKIN: Warm and dry. HEAD: Normocephalic. EYES: No scleral icterus. No injection or drainage. NECK: Supple, trachea midline. Orally intubated. CARDIOVASCULAR: Regular rate and rhythm without murmurs, gallops, or rubs. RESPIRATORY: Breath sounds equal bilaterally. Clear. GASTROINTESTINAL: Abdomen soft, non-tender, nondistended. MUSCULOSKELETAL: No cyanosis, or edema. Well perfused. BACK: Nontender without obvious deformity. No CVA tenderness. EXTREMITIES: No clubbing cyanosis or edema. Mild cellulitis right lower leg. NEURO: Moves 4 limbs. DTRs patellar 4+ robin. No clonus. Rigid to flexion/ extension. A/P Assessment and Plan Acute respiratory failure - Intubated for an airway protection - Continue mechanical ventilation - No weaning until neurologically improved Non-ST [place] - Possibly due to hypoxemia from respiratory failure - Monitor troponin trend - No acute EKG changes - Heparin drip - Cardiology consult - Allergic to aspirin - Cannot start the beta aislinn due to low blood pressure - Statins Altered mental status - CT head negative - Drug screen negative - Admit to ICU - Neuro checks per unit protocol - Improving with intubation and better oxygenation Diabetes mellitus - Stopped insulin pump while nothing by mouth - Insulin sliding scale Dyslipidemia - Atorvastatin DVT GI prophylaxis - Heparin drip and Pepcid Cellulitis right leg - ABX: Ceftriaxone, Levaquin Day #1 Overall impression: Patient remains critically ill with new neurological deterioration following apparent respiratory arrest. Likely anoxic injury. Critically Care 38 mins Jack Bella MD February 28, 2017 08:19
--- NOTE | 2017-02-28 09:36 | EKG ---
Date Performed: 02/27/2017 Time Performed: 13:50:16 PTAGE: 61 years EKG: Sinus rhythm MODERATE INTRAVENTRICULAR CONDUCTION DELAY BORDERLINE ECG PREVIOUS TRACING : 02/26/2017 22.54 DOCTOR: Elvis Owens Interpretating Date/Time 02/28/2017 09:35:49
--- NOTE | 2017-02-28 09:51 | PD.CARD.PN ---
Subjective Subjective Remarks Sedation turned down this morning, seems to be following commands better than earlier Objective Medications Current Medications Medications (Trade) Dose Ordered Sig/Rusty Route Start Time Stop Time Status Last Admin (NS 1000 ml Inj) 1,000 ml @ 84 mls/hr [id number] IV 02/26/17 23:56 02/28/17 02:35 (NS Flush) 2 ml UNSCH PRN .XX 02/27/17 00:00 (NS Flush) 2 ml BID .XX 02/27/17 09:00 02/27/17 09:40 (Tylenol) 650 mg Q6H PRN PO 02/27/17 00:00 (Morphine Inj) 2 mg Q2H PRN IV 02/27/17 00:00 (Pepcid Inj) 20 mg Q12HR IV PUSH 02/27/17 09:00 02/27/17 21:03 (Ativan Inj) 2 mg Q4H PRN IV 02/27/17 00:00 (Zofran Inj) 4 mg Q6H PRN IV 02/27/17 00:00 (Reglan Inj) 10 mg Q6H PRN IV 02/27/17 00:00 Miscellaneous Information 1 Q361D XX 02/27/17 00:00 02/27/17 03:21 (Chlorhexidine 2% Cloth) 3 pack Taper DAILY@04 TOP 02/27/17 04:00 02/23/18 03:59 02/28/17 05:21 (Chlorhexidine 2% Cloth) 3 pack UNSCH PRN TOP 02/27/17 00:00 (Ankita-Colace) 1 tab BID PO 02/27/17 09:00 02/27/17 21:03 (Milk Of Magnesia Liq) 30 ml Q12H PRN PO 02/27/17 00:00 (Senokot) 17.2 mg Q12H PRN PO 02/27/17 00:00 (Dulcolax Supp) 10 mg DAILY PRN RECTAL 02/27/17 00:00 Lactulose 30 ml 30 ml DAILY PRN PO 02/27/17 00:00 Propofol 100 ml @ 0 mls/hr TITRATE IV 02/27/17 00:00 02/28/17 06:09 Fentanyl Citrate 250 ml @ 0 mls/hr TITRATE IV 5/30/17 04:15 02/27/17 16:22 (Versed Inj) 100 ml @ 0 mls/hr TITRATE IV 02/27/17 04:15 02/27/17 05:09 (Heparin Inj) 5,000 units UNSCH PRN IV 02/27/17 10:15 Heparin Sodium (Porcine) 2500 units 2,500 units UNSCH PRN IV 02/27/17 10:15 (Heparin-D5W Inj) 250 ml @ 0 mls/hr TITRATE IV 02/27/17 04:15 02/27/17 21:28 (D50w (Vial) Inj) 50 ml UNSCH PRN IV 02/27/17 05:45 Glucagon 1 mg 1 mg UNSCH PRN OTHER 02/27/17 05:45 Ceftriaxone Sodium 1000 mg/ Sodium Chloride 100 ml @ 200 mls/hr Q24H IV 02/27/17 09:00 02/27/17 09:38 (Levaquin 750 Mg Premix Inj) 150 ml @ 100 mls/hr Q48H IV 02/27/17 10:00 02/27/17 09:39 (Plavix) 75 mg DAILY PO 02/27/17 09:00 02/27/17 09:40 Vital Signs / I&O Vital Signs Date Time Temp Pulse Resp B/P Pulse Ox O2 Delivery O2 Flow Rate FiO2 02/28/17 09:15 100 35 02/28/17 04:17 100 50 02/28/17 04:00 98.2 82 14 101/52 100 02/28/17 01:36 100 50 02/28/17 00:00 98.6 84 20 112/57 100 02/27/17 23:00 84 02/27/17 22:15 100 50 02/27/17 20:00 97.9 105 16 113/53 100 02/27/17 19:30 Mechanical Ventilator 50 02/27/17 17:25 100 50 02/27/17 16:00 97.5 90 14 129/60 100 02/27/17 15:00 91 02/27/17 12:14 100 50 02/27/17 12:00 97.8 112 21 125/67 100 02/27/17 09:29 100 50 I/O 02/27/17 02/27/17 02/27/17 02/28/17 02/28/17 02/28/17 07:00 15:00 23:00 07:00 15:00 23:00 Intake Total 405 ml 1106 ml 221 ml 775 ml Output Total 760 ml 1000 ml 300 ml 245 ml Balance -355 ml 106 ml -79 ml 530 ml Intake IV Total 405 ml 1106 ml 221 ml 775 ml Output Urine Total 760 ml 700 ml 300 ml 225 ml Stool Total 0 ml Gastric Drainage Total 300 ml 0 ml 20 ml # Bowel Movements 0 0 0 0 Physical Exam GENERAL: Intubated on light sedation SKIN: Warm and dry. HEAD: Atraumatic. Normocephalic. EYES: Pupils equal and round. No scleral icterus. No injection or drainage. ENT: No nasal bleeding or discharge. Mucous membranes pink and moist. NECK: Trachea midline. No JVD. CARDIOVASCULAR: Regular rate and rhythm. No murmurs noted RESPIRATORY: No accessory muscle use. Decreased breath sounds bilaterally GASTROINTESTINAL: Abdomen soft, non-tender, nondistended. Hepatic and splenic margins not palpable. MUSCULOSKELETAL: Trace edema bilaterally NEUROLOGICAL: Appears to follow commands on light sedation Laboratory Laboratory Tests Test 02/27/17 02/27/17 02/27/17 02/28/17 11:03 13:04 19:40 03:39 Troponin I 13.50 NG/ML Activated Partial 36.9 SEC 78.8 SEC 49.0 SEC Thromboplast Time Sodium Level 141 MEQ/L Potassium Level 4.0 MEQ/L Chloride Level 109 MEQ/L Carbon Dioxide Level 24.6 MEQ/L Anion Gap 7 MEQ/L Blood Urea Nitrogen 17 MG/DL Creatinine 0.93 MG/DL Estimat Glomerular Filtration 61 ML/MIN Rate Random Glucose 223 MG/DL Calcium Level 8.0 MG/DL Assessment and Plan Problem List: (1) Acute respiratory failure with hypoxia (2) Unresponsive (3) Non-STEMI (non-ST elevated myocardial infarction) (4) Hypotension (5) CAD (coronary artery disease) (6) Aspirin allergy Assessment and Plan 1) NSTEMI after respiratory distress (after taking Keflex/Bactrim) with oxygen saturation initially in the 50s and blood pressure of 71/42 before intubation Continue Plavix Continue Heparin Not on ASA due to allergy 2) EF 60-65%, diastolic dysfunction grade 1 3) Hx of CAD with diffuse disease previously (2006) 4) Will await to make sure neurologic recovery although overall seems to be doing better After extubation, will consider diagnostic catheterization If need for intervention, may need ASA desensitization vs. intervention on Plavix only? 5) Discussed the plan with her over the phone Problem Qualifiers (1) Hypotension: Qualified Code: I95.9 - Hypotension, unspecified hypotension type Han Barrow DO February 28, 2017 09:51
[2017-02-28] MEDS: cefTRIAXone INJ 1,000 MG in SODIUM CHLORIDE 0.9% INJ 100 ML IV SCH (10:22)
[2017-02-28] MEDS: DOCUSATE SODIUM 50 MG/SENNA 8.6 MG TAB PO SCH ×2 (10:22→19:26)
[2017-02-28] MEDS: FAMOTIDINE 20 MG/2 ML VIAL IV PUSH SCH ×2 (10:22→20:35)
[2017-02-28] MEDS: SODIUM CHLORIDE 0.9% FLUSH 10 ML FLUSH SCH ×2 (10:22→20:46)
[2017-02-28] MEDS: CLOPIDOGREL 75 MG TAB PO SCH (10:23)
[2017-02-28 10:54] LABS: APTT (PATIENT) 47.5 SEC (24.3-30.1)
--- NOTE | 2017-02-28 15:48 | MB ---
cc: JOHN FARIAS M.D. DATE OF CONSULTATION: 02/28/2017 DATE OF : 04/04/1957 REASON FOR CONSULTATION Possible anoxic encephalopathy. HISTORY OF PRESENT ILLNESS The patient is a 61-year-old woman who presented here to the hospital on February 26 with change in mental status, shortness of breath. Apparently was given some Keflex and Bactrim for lower extremity cellulitis. She took the first dose together and apparently had some hypoxia and unresponsiveness, came in with a BP of 71/42, intubated, placed on pressors. Currently she is now extubated, off sedation. Neurology was asked to evaluate for any anoxic encephalopathy. PAST MEDICAL HISTORY 1. Coronary artery disease. 2. Diabetes. 3. Insulin pump. 4. Dyslipidemia. PAST SURGICAL HISTORY 1. Cardiac cath in 2006. 2. . 3. Cholecystectomy. 4. Hysterectomy. 5. Tonsillectomy. 6. Orthopedic surgeries. ALLERGIES 1. ASPIRIN. 2. NSAIDs. 3. PENICILLIN. 4. QUESTIONABLY ALLERGIC TO BACTRIM AND KEFLEX. MEDICATIONS Medicines at home: 1. Losartan. 2. Elavil. 3. Toprol. 4. Fenofibrate. 5. Lipitor. 6. Imdur. 7. Plavix. 8. Protonix. 9. Synthroid. FAMILY HISTORY Noncontributory at this time. SOCIAL HISTORY She is , lives with her . PHYSICAL EXAMINATION VITAL SIGNS: Temperature 98.8, heart rate 98, respiratory rate 16, pulse ox 99% on two liters nasal cannula. NECK: Supple. There are no carotid bruits. HEART: Regular. NEUROLOGIC: She is somnolent. With sternal rub she arouses, opens here eyes. Pupils are reactive. Face is symmetrical. She is able to state her name. She knew her date of . She recognized the name of her . She follows commands, moves her arms and wiggles her toes. Toes are downgoing. DTRs are 1+. Withdraws to pain. Gait and cerebellar cannot be assessed. LABORATORY Hemoglobin 10.8, hematocrit 33.1, white count 5.2. PTT 47.5. Troponin 2.94 then 13.50. Ammonia level 55. GFR 61, glucose 223, calcium 8. Toxicology was negative. Urine culture was not indicated. Nasal screen for MRSA negative. Serology staph aureus was positive. Microbiology: None. IMAGING CT of the head was unremarkable. Chest x-ray: Mild left base patchy opacity. IMPRESSION A 61-year-old woman status post respiratory failure, may be due to medication but also seen that she had a non-ST elevated VT and her troponins were positive. RECOMMENDATIONS I would recommend continuing care per cardiology with Plavix and heparin. From a neurologic perspective she had an EEG and will get that report. However, the patient is awake and alert. She is still a sleepy but she follows commands appropriately. She can give me her name and state her and I think from a neurological perspective she will improve and be back to baseline. Continue current medical care. Further recommendations will be made accordingly, however, her EEG is slightly slow it would be expected if it was done intubated on sedation. It still may be slow even post extubation. Will give it another day or two but current neurological exam is very encouraging for neurologic recovery. MD ARIELLA Garsia/KAYLEIGH /2:34 PM /3:28 PM
[2017-03-01] VITALS (10 sets, daily range): BP systolic 125–148; BP diastolic 50–65; PULSE 99–111; RESP 10–18; TEMP 97.7–99; O2SAT 96–100
[2017-03-01] MEDS: ACETAMINOPHEN 325 MG TAB PO PRN ×2 (04:21→14:11)
[2017-03-01 05:27] LABS: POTASSIUM 3.9 MEQ/L (3.5-5.1)
[2017-03-01] MEDS: CHLORHEXIDINE GLUCONATE 2 % 1 PACK (2 CLOTHS) TOP SCH ×2 (06:09→23:12)
[2017-03-01] MEDS: INSULIN ASPART SUPPLEMENTAL SCALE SQ SCH ×4 (06:10→20:27)
--- NOTE | 2017-03-01 07:12 | MG ---
cc: JOHN FARIAS M.D. Lab No: [id number] Date: 02/28/2017 Age: 61 Sex: F Race: __ DATE OF 1955 ROOM 1310 TECHNIQUE Intubated, she was sedated, was turned off 15 minutes prior to the study. Following commands. INDICATION CT is negative. She was found down and concerns for anoxic injury. DESCRIPTION OF RECORD There is some slowing predominately of theta frequency. No epileptic activity seen. EKG looks sinus. Some mild slowing predominately theta frequency. Photic stimulation does show a driving response. No epileptic activity. IMPRESSION Mild slowing may be residual medicine effect. No epileptic activity. Clinical correlation. MD ARIELLA Garsia/TOREY /10:38 PM /7:04 AM
[2017-03-01] MEDS: DOCUSATE SODIUM 50 MG/SENNA 8.6 MG TAB PO SCH ×2 (08:02→20:00)
[2017-03-01] MEDS: CLOPIDOGREL 75 MG TAB PO SCH (08:02)
[2017-03-01] MEDS: cefTRIAXone INJ 1,000 MG in SODIUM CHLORIDE 0.9% INJ 100 ML IV SCH (08:03)
[2017-03-01] MEDS: FAMOTIDINE 20 MG/2 ML VIAL IV PUSH SCH ×2 (08:03→20:00)
[2017-03-01] MEDS: SODIUM CHLORIDE 0.9% FLUSH 10 ML FLUSH SCH ×2 (08:10→20:00)
--- NOTE | 2017-03-01 09:05 | HHI.CCPN ---
Subjective Remarks/Hospital Course 61-year-old female with past medical history of diabetes coronary artery disease dyslipidemia hypothyroidism previously hyperthyroidism treated with radioactive iodine, presents now with altered mental status and unresponsiveness. She was intubated in the emergency department for airway protection as well severe hypoxemia. She presented hypotensive however shortly after intubation and stabilization of her airway and oxygenation her blood pressure improved with a MAP above 65. Patient is comatose unresponsive and no history obtainable at this time 02/27: This episode apparently followed ingestion of Bactrim -> difficulty breathing -> unresponsive. I suspect she became hypoxemic. Cellulitis persists. LLL infiltrate. 02/28: Remains hyper-reflexic. Opens eyes but no tracking. Rigidity lowers. 03/01: Extubated. Alert, O X 3, cooperative. M/S intact. Cellulitis left leg persists. D/C levaquin. Continue ceftriaxone until cellulitis resolves. Objective Vital Signs Date Time Temp Pulse Resp B/P Pulse Ox O2 Delivery O2 Flow Rate FiO2 03/01/17 07:00 98 Nasal Cannula 2.00 03/01/17 07:00 99 03/01/17 04:00 98.5 15 131/62 02/28/17 09:15 35 Intake and Output 02/28/17 02/28/17 03/01/17 08:00 16:00 00:00 Intake Total 775 ml 816 ml 695 ml Output Total 245 ml 250 ml 325 ml Balance 530 ml 566 ml 370 ml Result Diagram: 02/27/17 0439 03/01/17 0320 Imaging CXR: LLL infiltrate Objective Remarks GENERAL: Alert. SKIN: Warm and dry. HEAD: Normocephalic. EYES: No scleral icterus. No injection or drainage. NECK: Supple, trachea midline. Airway widely patent. CARDIOVASCULAR: Regular rate and rhythm without murmurs, gallops, or rubs. RESPIRATORY: Breath sounds equal bilaterally. Clear. GASTROINTESTINAL: Abdomen soft, non-tender, nondistended. MUSCULOSKELETAL: No cyanosis, or edema. Well perfused. BACK: Nontender without obvious deformity. No CVA tenderness. EXTREMITIES: No clubbing cyanosis or edema. Mild cellulitis left lower leg. NEURO: Moves 4 limbs. DTRs patellar 3+ robin. No clonus. O X 3. A/P Assessment and Plan Acute respiratory failure - Resolved, extubated. Non-ST [place] - Possibly due to hypoxemia from respiratory failure - Monitor troponin trend - No acute EKG changes - Heparin drip - Cardiology consult - Allergic to aspirin - Cannot start the beta aislinn due to low blood pressure - Statins Altered mental status -Resolved Diabetes mellitus - Stopped insulin pump while nothing by mouth - Insulin sliding scale Dyslipidemia - Atorvastatin DVT GI prophylaxis - Heparin drip and Pepcid Cellulitis right leg - ABX: Ceftriaxone, Levaquin Day #3 Overall impression: Much improved. This looks like an anaphylactic reaction with airway obstruction leading to respiratory distress. Jack Bella MD Mar 01, 2017 09:05
[2017-03-01 09:09] LABS: APTT (PATIENT) 36.5 SEC (24.3-30.1)
--- NOTE | 2017-03-01 12:50 | PD.CARD.PN ---
Subjective Subjective Remarks No chest pain, no shortness of breath Objective Medications Current Medications Medications (Trade) Dose Ordered Sig/Rusty Route Start Time Stop Time Status Last Admin (NS 1000 ml Inj) 1,000 ml @ 84 mls/hr [id number] IV 02/26/17 23:56 02/28/17 20:46 (NS Flush) 2 ml UNSCH PRN .XX 02/27/17 00:00 (NS Flush) 2 ml BID .XX 02/27/17 09:00 03/01/17 08:10 (Tylenol) 650 mg Q6H PRN PO 02/27/17 00:00 03/01/17 04:21 (Morphine Inj) 2 mg Q2H PRN IV 02/27/17 00:00 (Pepcid Inj) 20 mg Q12HR IV PUSH 02/27/17 09:00 03/01/17 08:03 (Ativan Inj) 2 mg Q4H PRN IV 02/27/17 00:00 (Zofran Inj) 4 mg Q6H PRN IV 02/27/17 00:00 (Reglan Inj) 10 mg Q6H PRN IV 02/27/17 00:00 Miscellaneous Information 1 Q361D XX 02/27/17 00:00 02/27/17 03:21 (Chlorhexidine 2% Cloth) 3 pack Taper DAILY@04 TOP 02/27/17 04:00 02/23/18 03:59 03/01/17 06:09 (Chlorhexidine 2% Cloth) 3 pack UNSCH PRN TOP 02/27/17 00:00 (Ankita-Colace) 1 tab BID PO 02/27/17 09:00 03/01/17 08:02 (Milk Of Magnesia Liq) 30 ml Q12H PRN PO 02/27/17 00:00 (Senokot) 17.2 mg Q12H PRN PO 02/27/17 00:00 (Dulcolax Supp) 10 mg DAILY PRN RECTAL 02/27/17 00:00 Lactulose 30 ml 30 ml DAILY PRN PO 02/27/17 00:00 Propofol 100 ml @ 0 mls/hr TITRATE IV 02/27/17 00:00 02/28/17 06:09 Fentanyl Citrate 250 ml @ 0 mls/hr TITRATE IV 02/27/17 04:15 02/27/17 16:22 (Versed Inj) 100 ml @ 0 mls/hr TITRATE IV 02/27/17 04:15 02/27/17 05:09 (Heparin Inj) 5,000 units UNSCH PRN IV 02/27/17 10:15 Heparin Sodium (Porcine) 2500 units 2,500 units UNSCH PRN IV 02/27/17 10:15 (Heparin-D5W Inj) 250 ml @ 0 mls/hr TITRATE IV 02/27/17 04:15 02/27/17 21:28 (D50w (Vial) Inj) 50 ml UNSCH PRN IV 02/27/17 05:45 Glucagon 1 mg 1 mg UNSCH PRN OTHER 02/27/17 05:45 (Rocephin Inj/NS Inj) 100 ml @ 200 mls/hr Q24H IV 02/27/17 09:00 03/01/17 08:03 (Plavix) 75 mg DAILY PO 02/27/17 09:00 03/01/17 08:02 Vital Signs / I&O Vital Signs Date Time Temp Pulse Resp B/P Pulse Ox O2 Delivery O2 Flow Rate FiO2 03/01/17 12:00 98.8 111 16 148/65 100 03/01/17 09:19 100 Nasal Cannula 2.00 03/01/17 08:00 98.8 99 10 125/59 98 03/01/17 07:00 98 Nasal Cannula 2.00 03/01/17 07:00 99 03/01/17 04:00 98.5 104 15 131/62 99 03/01/17 00:00 99.0 101 12 134/50 100 02/28/17 23:00 116 02/28/17 20:57 95 Nasal Cannula 2.00 02/28/17 20:00 99.3 116 17 140/64 100 02/28/17 19:00 99 Nasal Cannula 3.50 02/28/17 16:00 98.9 116 14 126/60 99 02/28/17 15:00 117 I/O 02/28/17 02/28/17 02/28/17 03/01/17 03/01/17 03/01/17 07:00 15:00 23:00 07:00 15:00 23:00 Intake Total 775 ml 816 ml 695 ml 624 ml Output Total 245 ml 250 ml 325 ml 375 ml Balance 530 ml 566 ml 370 ml 249 ml Intake IV Total 775 ml 816 ml 695 ml 624 ml Output Urine Total 225 ml 250 ml 325 ml 375 ml Gastric Drainage Total 20 ml # Bowel Movements 0 0 0 0 Physical Exam GENERAL: NAD, AAOx3 SKIN: Warm and dry. HEAD: Atraumatic. Normocephalic. EYES: Pupils equal and round. No scleral icterus. No injection or drainage. ENT: No nasal bleeding or discharge. Mucous membranes pink and moist. NECK: Trachea midline. No JVD. CARDIOVASCULAR: Regular rate and rhythm. No murmurs noted RESPIRATORY: No accessory muscle use. Decreased breath sounds bilaterally GASTROINTESTINAL: Abdomen soft, non-tender, nondistended. Hepatic and splenic margins not palpable. MUSCULOSKELETAL: Trace edema bilaterally NEUROLOGICAL: No focal deficits Laboratory Laboratory Tests Test 03/01/17 03/01/17 03:20 08:29 Sodium Level 143 MEQ/L Potassium Level 3.9 MEQ/L Chloride Level 110 MEQ/L Carbon Dioxide Level 24.0 MEQ/L Anion Gap 9 MEQ/L Blood Urea Nitrogen 14 MG/DL Creatinine 0.79 MG/DL Estimat Glomerular Filtration 74 ML/MIN Rate Random Glucose 142 MG/DL Calcium Level 8.5 MG/DL Activated Partial 36.5 SEC Thromboplast Time Assessment and Plan Problem List: (1) Acute respiratory failure with hypoxia (2) Unresponsive (3) Non-STEMI (non-ST elevated myocardial infarction) (4) Hypotension (5) CAD (coronary artery disease) (6) Aspirin allergy Assessment and Plan 1) NSTEMI after respiratory distress (after taking Keflex/Bactrim) with oxygen saturation initially in the 50s and blood pressure of 71/42 before intubation NSTEMI felt to be Type 2 in nature Continue Plavix Continue Heparin for 24 more hours Not on ASA due to allergy 2) EF 60-65%, diastolic dysfunction grade 1 3) Hx of CAD with diffuse disease previously (2006) 4) Call placed to Dr. Main's office, saw the patient previously and note stating patient too high risk for desensitization, even risky in the hospital setting. 5) Discussed with the patient at length, agrees with medical management at this time as it appears unable to desensitize and stenting without ASA would be high risk Will add back Imdur/Lipitor/Toprol Problem Qualifiers (1) Hypotension: Qualified Code: I95.9 - Hypotension, unspecified hypotension type Han Barrow DO Mar 01, 2017 12:50
[2017-03-01] MEDS: METOPROLOL SUCCINATE 50 MG EXTENDED RELEASE TAB PO SCH (14:16)
[2017-03-01] MEDS: SODIUM CHLOR 0.9% 1000 ML INJ 1,000 ML IV SCH (14:17)
[2017-03-01] MEDS: REMOVE OLD PATCH T-DERMAL SCH (14:30)
[2017-03-01] MEDS: fentaNYL 50 MCG/HR PATCH T-DERMAL SCH (15:19)
[2017-03-01 17:44] LABS: APTT (PATIENT) 41.8 SEC (24.3-30.1)
[2017-03-01] MEDS: ATORVASTATIN 40 MG TAB PO SCH (20:00)
[2017-03-01] MEDS: MORPHINE SULFATE 4 MG/ML INJ IV PRN (21:07)
[2017-03-01] MEDS: HEPARIN-D5W INJ 250 ML IV SCH (21:12)
--- NOTE | 2017-03-01 22:25 | MB ---
cc: SKYLA CHOPRA MD DATE OF CONSULTATION 03/01/17 DATE OF 02/16/1985 DATE OF ADMISSION 02/27/2017 Travel in the last 30 days none. ADMISSION DIAGNOSIS Acute respiratory failure with unresponsiveness. REASON FOR CONSULTATION Medical management. HISTORY OF PRESENT ILLNESS This pleasant 61-year-old white female was at home in her usual state of health on the when she noted an acute onset of altered mental status and shortness of breath. She states that she does not breathe and felt like her throat was closing up on her. She was able to tell her that something was wrong and he called 911 to assist. According to the record, the patient was unresponsive when paramedics got to her. She was intubated in the field and was suffering from severe hypoxemia. The patient was brought to the emergency room unresponsive and intubated. Please see ER records for any further details. The patient is now alert and oriented and extubated. She is able to give some significant medical history but does not remember anything about her arrival to the emergency room. PAST MEDICAL HISTORY 1. Coronary artery disease 2. Diabetes type 2, uses insulin pump. 3. Hyperlipidemia, 4. Degenerative disk disease 5. Hypothyroidism. 6. Recent cellulitis of the left lower leg 7. ASPIRIN ALLERGIES 8. Multiple tendon knee and shoulder surgeries. 9. Six cardiac stents. ALLERGIES Noted as severe ASPIRIN PENICILLIN NONSTEROIDAL ANTIINFLAMMATORY DRUGS MEDICATIONS 1. Losartan 2. Amitriptyline 3. Bupropion 4. Burns fatty acids 5. Metoprolol 6. Keflex 7. Fenofibrate 8. Atorvastatin 9. Multivitamins 10. Isosorbide by ER 11. Plavix 12. Protonix 13. Bactrim DS 14. Synthroid. These are all the medicines that are listed on her medication record. SOCIAL HISTORY The patient currently is , lives at home with her . She denies any tobacco, alcohol or illicit drug use. REVIEW OF SYSTEMS 12-point review was done, positives noted in HPI which include acute respiratory distress with altered mental status and unresponsiveness, hypotension. The patient denies any chest pain and no shortness of breath before her acute event. No bowel movement in three days. Other systems negative or unremarkable. PHYSICAL EXAMINATION VITAL SIGNS: Temperature is 98.8, pulse 99 to 111, respiratory rate 20, blood pressure 148/65 and 125/59. O2 sat 100 currently on nasal cannula at 2 liters. General: A mildly obese white female who looks older than her stated age. She is resting in the chair. She is currently awake, alert and oriented and a fairly good historian. Her family is assisting her with any further history needs. SKIN: Slightly pale and anh but warm and dry. Her turgor is thick. She does have some mild cellulitis noted on her left lower leg with a trace of edema. Right leg has no edema. CARDIOVASCULAR: S1-S2 rhythm is tachycardic. Heart sounds are distant but no murmurs, rubs or gallops heard. RESPIRATORY: Essentially clear anteriorly and posteriorly with no wheezes, rales or rhonchi. Her voice does have a coarse sound, but patient is post intubation. ABDOMEN: Round, soft, nontender, nondistended. Active bowel sounds. MUSCULOSKELETAL: She moves all pf her extremities with purpose. She has equal taco maker. No obvious deformities. NEUROLOGIC: She is awake, responds well to verbal stimuli. Tongue is midline. She can follow my finger with her eyes vertically and horizontally. Mucous membranes are slightly dry. Speech is coarse but clear. PSYCHIATRIC: Appropriate mood and affect. LABORATORY DATA 02/27/2017 - WBC count 5.2, RBC 3.87, hemoglobin 10.8, hematocrit 33.1. Initial diff was normal except for monocyte percentage 12. PT INR one, PTT on 03/01/2017 36.5. Sodium from 03/01/2017 143, potassium 3.9, chloride 110. carbon dioxide 24. Anion gap 9, BUN 14, creatinine 0.79, GFR 74, random glucose 142, calcium 8.5. Note that her initial troponins on admission were 2.94 and 13.5. Urine yellow, clear, pH 5.5. Specific gravity 1.012, negative for glucose, protein, ketones, occult blood, nitrates, bilirubin and leukocyte esterase. Culture and sensitivity is not indicated. Toxicology shows negative for barbiturates. Opiates, amphetamines, benzos, cod8 and cannabis. Alcohol level was less than 3. MRSA PCR is negative. Serology for staph aureus PCR was positive. IMAGING STUDIES Shows her chest x-ray on admission to be mild left based opacity. CT of the head with no acute endocardial findings. The patient's speech assessment done on 03/01 recommends he to have a regular diet with thin liquids. We discussing being careful with her swallow and thin liquids especially since she has had a recent intubation and extubation. ASSESSMENT Diabetes type 2 with an insulin pump, uncontrolled blood sugars, possible non-ST [place], acute respiratory failure requiring mechanical ventilation, altered mental status, hypertension with episodes of hypotension, now resolved. possible allergic reaction to Keflex or Bactrim. Cellulitis left leg. PLAN Monitor her labs, monitor her Accu-Cheks a.c. and at bedtime with the patient using her pump for her sliding scale insulin or she can use sliding scale insulin per syringe. The patient's acute respiratory failure is now controlled. We will maintain her on oxygen, Duonebs and monitor her vital signs. Non-ST [place] possibly could have been informed from the hypoxemia and respiratory failure with its acute onset. The patient is still mildly tachycardiac. We will make sure all of her medications have been reconciled. She is currently still on her heparin drip. Cardiology has been consulted for their expert opinion so we will follow the plan of care that he sets for her. Patient's hyperlipidemia will be controlled with medical management and her statins. Altered mental status is now resolved and cleared. The patient is no longer hypoxic and is alert and able to give good history. Hyperlipidemia more have medical management. ASPIRIN ALLERGY has been discussed in cardiology's plan of care. We will make sure that the sulfa drugs and Keflex are listed on her allergy list since this could have been an allergic reaction that caused her acute respiratory failure. We will increase her activity, monitor her labs in the morning, continue to monitor her cellulitis. Continue the patient's IV antibiotics which include Rocephin, PUD prophylaxis with Pepcid. DVT prophylaxis with heparin and her Plavix is on board. Bowel regimen will be monitored. The patient will receive a dose of Milk of Magnesia since she is day three with no BM. We will monitor those needs. She also has Senokot ordered p.o. for extreme constipation. The patient is full code, full aggressive care. The patient has a hemoccult pending to check for any blood in the stools. Ammonia level has been ordered for in the morning along with a hepatic panel, PT, troponin time, BMP and CBC. The patient will work with physical therapy to maintain her strengthening. Neurology has been consulted for their expert opinion on this case. 2-D echo has been done. The family is in the room and this plan of care has been explained with all questions answered. Skyla Chopra MD Dictated by NORBERT Andrew/ /4:17 PM /9:33 PM
[2017-03-01 23:35] LABS: APTT (PATIENT) 40.6 SEC (24.3-30.1)
[2017-03-02] VITALS (8 sets, daily range): BP systolic 112–137; BP diastolic 55–74; PULSE 93–99; RESP 17–20; TEMP 97.9–99; O2SAT 90–97
[2017-03-02 04:33] LABS: AUTOMATED NEUTROPHIL # 6.1 TH/MM3 (1.8-7.7); BASOPHIL % 0.3 % (0.0-2.0); EOSINOPHIL # 0.2 TH/MM3 (0-0.4); EOSINOPHIL % 2.3 % (0.0-4.0); HEMATOCRIT 28.1 % (35.0-46.0); HEMO FLAGS DIFF FINAL; LYMPH % 10.8 % (9.0-44.0); LYMPHOCYTE # 0.9 TH/MM3 (1.0-4.8); MEAN CELL VOLUME 84.3 FL (80.0-100.0); MEAN CORPUSCULAR HGB CONC 33.2 % (32.0-36.0); MONO % 10.9 % (0.0-8.0); NEUT % 75.7 % (16.0-70.0); PLATELET COUNT 280 TH/MM3 (150-450); RED BLOOD COUNT 3.34 MIL/MM3 (4.00-5.30); RED CELL DISTRIBUTION WIDTH 13.7 % (11.6-17.2)
[2017-03-02 04:41] LABS: BICARBONATE 25.8 MEQ/L (21.0-32.0); POTASSIUM 3.8 MEQ/L (3.5-5.1)
[2017-03-02 04:43] LABS: APTT (PATIENT) 47.1 SEC (24.3-30.1); PROTHROMBIN TIME - PATIENT 10.9 SEC (9.8-11.6)
[2017-03-02 04:46] LABS: INDIRECT BILIRUBIN 0.2 MG/DL (0.0-0.8); TOTAL BILIRUBIN ADULT 0.5 MG/DL (0.2-1.0)
[2017-03-02] MEDS: INSULIN ASPART SUPPLEMENTAL SCALE SQ SCH ×4 (06:14→21:00)
[2017-03-02] MEDS: ISOSORBIDE MONONITRATE 30 MG TAB PO SCH (06:15)
[2017-03-02] MEDS: MORPHINE SULFATE 4 MG/ML INJ IV PRN ×2 (08:03→22:51)
[2017-03-02] MEDS: CLOPIDOGREL 75 MG TAB PO SCH (08:04)
[2017-03-02] MEDS: METOPROLOL SUCCINATE 50 MG EXTENDED RELEASE TAB PO SCH (08:04)
[2017-03-02] MEDS: cefTRIAXone INJ 1,000 MG in SODIUM CHLORIDE 0.9% INJ 100 ML IV SCH (08:04)
[2017-03-02] MEDS: DOCUSATE SODIUM 50 MG/SENNA 8.6 MG TAB PO SCH ×2 (08:04→21:47)
[2017-03-02] MEDS: SODIUM CHLORIDE 0.9% FLUSH 10 ML FLUSH SCH ×2 (08:04→21:00)
[2017-03-02] MEDS: FAMOTIDINE 20 MG/2 ML VIAL IV PUSH SCH ×2 (12:22→21:47)
--- NOTE | 2017-03-02 14:34 | PD.CARD.PN ---
Subjective Subjective Remarks No chest pain, no shortness of breath Objective Medications Current Medications Medications (Trade) Dose Ordered Sig/Rusty Route Start Time Stop Time Status Last Admin (NS Flush) 2 ml UNSCH PRN .XX 02/27/17 00:00 03/02/17 12:22 (NS Flush) 2 ml BID .XX 02/27/17 09:00 03/02/17 08:04 (Tylenol) 650 mg Q6H PRN PO 02/27/17 00:00 03/01/17 14:11 (Morphine Inj) 2 mg Q2H PRN IV 02/27/17 00:00 03/02/17 08:03 (Pepcid Inj) 20 mg Q12HR IV PUSH 02/27/17 09:00 03/02/17 12:22 (Ativan Inj) 2 mg Q4H PRN IV 02/27/17 00:00 (Zofran Inj) 4 mg Q6H PRN IV 02/27/17 00:00 (Reglan Inj) 10 mg Q6H PRN IV 02/27/17 00:00 Miscellaneous Information 1 Q361D XX 02/27/17 00:00 02/27/17 03:21 (Chlorhexidine 2% Cloth) 3 pack Taper DAILY@04 TOP 02/27/17 04:00 02/23/18 03:59 03/01/17 06:09 (Chlorhexidine 2% Cloth) 3 pack UNSCH PRN TOP 02/27/17 00:00 (Ankita-Colace) 1 tab BID PO 02/27/17 09:00 03/02/17 08:04 (Milk Of Magnesia Liq) 30 ml Q12H PRN PO 02/27/17 00:00 (Senokot) 17.2 mg Q12H PRN PO 02/27/17 00:00 (Dulcolax Supp) 10 mg DAILY PRN RECTAL 02/27/17 00:00 Lactulose 30 ml 30 ml DAILY PRN PO 02/27/17 00:00 (fentaNYL DRIP) 250 ml @ 0 mls/hr TITRATE IV 02/27/17 04:15 02/27/17 16:22 (Heparin Inj) 5,000 units UNSCH PRN IV 02/27/17 10:15 Heparin Sodium (Porcine) 2500 units 2,500 units UNSCH PRN IV 02/27/17 10:15 (Heparin-D5W Inj) 250 ml @ 0 mls/hr TITRATE IV 02/27/17 04:15 03/01/17 21:12 (D50w (Vial) Inj) 50 ml UNSCH PRN IV 02/27/17 05:45 Glucagon 1 mg 1 mg UNSCH PRN OTHER 02/27/17 05:45 (Rocephin Inj/NS Inj) 100 ml @ 200 mls/hr Q24H IV 02/27/17 09:00 03/02/17 08:04 (Plavix) 75 mg DAILY PO 02/27/17 09:00 03/02/17 08:04 (Imdur) 30 mg DAILY@07 PO 03/02/17 07:00 03/02/17 06:15 (Toprol Xl) 50 mg DAILY PO 03/01/17 13:00 03/02/17 08:04 (Lipitor) 40 mg HS PO 03/01/17 21:00 03/01/17 20:00 (Duragesic 50 Mcg Patch.72 Hr) 1 patch Q3D T-DERMAL 03/01/17 14:30 03/01/17 15:19 Miscellaneous Information 1 Q3D T-DERMAL 03/01/17 14:30 Vital Signs / I&O Vital Signs Date Time Temp Pulse Resp B/P Pulse Ox O2 Delivery O2 Flow Rate FiO2 03/02/17 12:00 97.9 96 19 112/55 93 03/02/17 11:38 94 Nasal Cannula 2.00 03/02/17 08:00 98.4 98 17 127/59 94 03/02/17 04:05 98.1 95 17 120/59 94 03/02/17 00:00 98.1 99 18 137/64 97 03/01/17 20:42 98.6 101 18 137/63 96 03/01/17 19:06 99 21 03/01/17 19:00 108 03/01/17 19:00 99 Nasal Cannula 2.00 03/01/17 16:00 97.7 106 18 136/65 100 I/O 03/01/17 03/01/17 03/01/17 03/02/17 03/02/17 03/02/17 07:00 15:00 23:00 07:00 15:00 23:00 Intake Total 624 ml 1306 ml 344 ml Output Total 375 ml 850 ml 480 ml Balance 249 ml 456 ml -136 ml Intake Oral 474 ml 240 ml IV Total 624 ml 832 ml 104 ml Output Urine Total 375 ml 850 ml 480 ml # Voids 1 2 # Bowel Movements 0 0 1 Physical Exam GENERAL: NAD, AAOx3 SKIN: Warm and dry. HEAD: Atraumatic. Normocephalic. EYES: Pupils equal and round. No scleral icterus. No injection or drainage. ENT: No nasal bleeding or discharge. Mucous membranes pink and moist. NECK: Trachea midline. No JVD. CARDIOVASCULAR: Regular rate and rhythm. No murmurs noted RESPIRATORY: No accessory muscle use. Decreased breath sounds bilaterally GASTROINTESTINAL: Abdomen soft, non-tender, nondistended. Hepatic and splenic margins not palpable. MUSCULOSKELETAL: Trace edema bilaterally NEUROLOGICAL: No focal deficits Laboratory Laboratory Tests Test 03/01/17 03/01/17 03/02/17 17:01 22:41 04:04 Activated Partial 41.8 SEC 40.6 SEC 47.1 SEC Thromboplast Time White Blood Count 8.0 TH/MM3 Red Blood Count 3.34 MIL/MM3 Hemoglobin 9.3 GM/DL Hematocrit 28.1 % Mean Corpuscular Volume 84.3 FL Mean Corpuscular Hemoglobin 28.0 PG Mean Corpuscular Hemoglobin 33.2 % Concent Red Cell Distribution Width 13.7 % Platelet Count 280 TH/MM3 Mean Platelet Volume 7.9 FL Neutrophils (%) (Auto) 75.7 % Lymphocytes (%) (Auto) 10.8 % Monocytes (%) (Auto) 10.9 % Eosinophils (%) (Auto) 2.3 % Basophils (%) (Auto) 0.3 % Neutrophils # (Auto) 6.1 TH/MM3 Lymphocytes # (Auto) 0.9 TH/MM3 Monocytes # (Auto) 0.9 TH/MM3 Eosinophils # (Auto) 0.2 TH/MM3 Basophils # (Auto) 0.0 TH/MM3 CBC Comment DIFF FINAL Differential Comment Prothrombin Time 10.9 SEC Prothromb Time International 1.0 RATIO Ratio Sodium Level 142 MEQ/L Potassium Level 3.8 MEQ/L Chloride Level 107 MEQ/L Carbon Dioxide Level 25.8 MEQ/L Anion Gap 9 MEQ/L Blood Urea Nitrogen 17 MG/DL Creatinine 0.82 MG/DL Estimat Glomerular Filtration 71 ML/MIN Rate Random Glucose 224 MG/DL Calcium Level 8.3 MG/DL Total Bilirubin 0.5 MG/DL Direct Bilirubin 0.3 MG/DL Indirect Bilirubin 0.2 MG/DL Aspartate Amino Transf 38 U/L (AST/SGOT) Alanine Aminotransferase 26 U/L (ALT/SGPT) Alkaline Phosphatase 50 U/L Ammonia 26 MCMOL/L Troponin I 7.59 NG/ML Total Protein 5.7 GM/DL Albumin 2.1 GM/DL Assessment and Plan Problem List: (1) Acute respiratory failure with hypoxia (2) Unresponsive (3) Non-STEMI (non-ST elevated myocardial infarction) (4) Hypotension (5) CAD (coronary artery disease) (6) Aspirin allergy Assessment and Plan 1) NSTEMI after respiratory distress (after taking Keflex/Bactrim) with oxygen saturation initially in the 50s and blood pressure of 71/42 before intubation NSTEMI felt to be Type 2 in nature Continue Plavix Plan DC Heparin today Not on ASA due to allergy 2) EF 60-65%, diastolic dysfunction grade 1 3) Hx of CAD with diffuse disease previously (2006) 4) Call placed to Dr. Main's office, saw the patient previously and note stating patient too high risk for desensitization, even risky in the hospital setting. 5) Discussed with the patient at length, agrees with medical management at this time as it appears unable to desensitize and stenting without ASA would be high risk (03/01/17) Will add back Imdur/Lipitor/Toprol Further discussion today (03/02/17), eventually we need to objectively view her coronary anatomy, wants to get stronger beforehand, so will plan medical management for now and follow up with Dr. Phelps outpatient for stress testing, if large area of ischemia then will plan cardiac catheterization and PCI if necessary Will consider secondary opinion for ASA desensitization DC heparin today, watch 24 hrs, if stable tomorrow then from a cardiovascular standpoint can be discharged Problem Qualifiers (1) Hypotension: Qualified Code: I95.9 - Hypotension, unspecified hypotension type Han Barrow DO Mar 02, 2017 14:34
--- NOTE | 2017-03-02 15:02 | HHI.PR ---
Subjective Subjective Remarks Complaining of a sore throat No fever A chest No shortness of breath Overall feeling improved, she is getting stronger Left leg swelling and erythema improving On heparin drip Review of Systems Constitutional Constitutional Remarks 12 point review of systems completed, negative except as noted above Vitals/Results Intake & Output 03/01/17 03/01/17 03/02/17 15:00 23:00 07:00 Intake Total 1306 ml 344 ml Output Total 850 ml 480 ml Balance 456 ml -136 ml Intake Oral 474 ml 240 ml IV Total 832 ml 104 ml Output Urine Total 850 ml 480 ml # Voids 1 2 # Bowel Movements 0 1 Vital Signs Vital Signs Date Time Temp Pulse Resp B/P Pulse Ox O2 Delivery O2 Flow Rate FiO2 03/02/17 12:00 97.9 96 19 112/55 93 03/02/17 11:38 94 Nasal Cannula 2.00 03/02/17 08:00 98.4 98 17 127/59 94 03/02/17 04:05 98.1 95 17 120/59 94 03/02/17 00:00 98.1 99 18 137/64 97 03/01/17 20:42 98.6 101 18 137/63 96 03/01/17 19:06 99 21 03/01/17 19:00 108 03/01/17 19:00 99 Nasal Cannula 2.00 03/01/17 16:00 97.7 106 18 136/65 100 CBC/BMP: 03/02/17 0404 03/02/17 0404 Lab Results Laboratory Tests Test 03/01/17 03/01/17 03/02/17 17:01 22:41 04:04 Activated Partial 41.8 SEC 40.6 SEC 47.1 SEC Thromboplast Time White Blood Count 8.0 TH/MM3 Red Blood Count 3.34 MIL/MM3 Hemoglobin 9.3 GM/DL Hematocrit 28.1 % Mean Corpuscular Volume 84.3 FL Mean Corpuscular Hemoglobin 28.0 PG Mean Corpuscular Hemoglobin 33.2 % Concent Red Cell Distribution Width 13.7 % Platelet Count 280 TH/MM3 Mean Platelet Volume 7.9 FL Neutrophils (%) (Auto) 75.7 % Lymphocytes (%) (Auto) 10.8 % Monocytes (%) (Auto) 10.9 % Eosinophils (%) (Auto) 2.3 % Basophils (%) (Auto) 0.3 % Neutrophils # (Auto) 6.1 TH/MM3 Lymphocytes # (Auto) 0.9 TH/MM3 Monocytes # (Auto) 0.9 TH/MM3 Eosinophils # (Auto) 0.2 TH/MM3 Basophils # (Auto) 0.0 TH/MM3 CBC Comment DIFF FINAL Differential Comment Prothrombin Time 10.9 SEC Prothromb Time International 1.0 RATIO Ratio Sodium Level 142 MEQ/L Potassium Level 3.8 MEQ/L Chloride Level 107 MEQ/L Carbon Dioxide Level 25.8 MEQ/L Anion Gap 9 MEQ/L Blood Urea Nitrogen 17 MG/DL Creatinine 0.82 MG/DL Estimat Glomerular Filtration 71 ML/MIN Rate Random Glucose 224 MG/DL Calcium Level 8.3 MG/DL Total Bilirubin 0.5 MG/DL Direct Bilirubin 0.3 MG/DL Indirect Bilirubin 0.2 MG/DL Aspartate Amino Transf 38 U/L (AST/SGOT) Alanine Aminotransferase 26 U/L (ALT/SGPT) Alkaline Phosphatase 50 U/L Ammonia 26 MCMOL/L Troponin I 7.59 NG/ML Total Protein 5.7 GM/DL Albumin 2.1 GM/DL Physical Exam General General Appearance: Well Developed, Well Nourished, No Acute Distress, Comfortable Eyes Eye Exam: Pupils Equal, Pupils Reactive Ears & Nose Ears & Nose Exam: Nasal Mucosa [place] Throat Throat Exam: Oral Mucosa [place] & Moist Neck Neck Exam: Neck Supple, Trachea Midline Pulmonary Resp Exam: Breath Sounds Equal Cardiology CV Exam: Regular, Good Perfusion Gastrointestinal/Abdomen GI Exam: Soft, Non-Tender, Bowel Sounds Present, Non-Distended Musculoskeletal MS Exam: Joints Intact Integumentary Skin Exam: Warm, Dry Skin Remarks Erythema to left lower extremity markedly improved, there is some noted around ankle medial aspect Extremeties Extremities Exam: Pedal Pulses Palpable, Trace Edema Neurologic Neuro Exam: Alert, Awake, Oriented, Speech Clear, Moving All Extremities, No Focal Deficits Psychiatric Psych Exam: Appropriate Responses VTE Prophylaxis VTE Prophylaxis Meds: Heparin PUD Prophylasis PUD Remarks Pepcid Assessment/Plan Problem List: (1) Acute respiratory failure with hypoxia Plan: resolved (2) Non-STEMI (non-ST elevated myocardial infarction) (3) Aspirin allergy (4) Hypotension (5) CAD (coronary artery disease) (6) IDDM (insulin dependent diabetes mellitus) (7) Cellulitis (8) possible anaphalylactic reaction (9) Acute kidney injury Assessment/Plan Acute respiratory failure possibly secondary to anaphylactic reaction, now extubated Patient took Keflex, Bactrim. -Continue with DuoNeb's Continue with supplemental oxygen to keep sats greater than 92 and we slowly Non-ST [place], possibly due to stress response from hypoxemia and respiratory failure Continue with heparin drip, supposed to be discontinued today. -Appreciate cardiology input, at this time continue with medical management. Recommends outpatient follow-up for stress test. Will consider secondary opinion for ASA desensitization -Patient has severe allergy to aspirin, at this time continue with Plavix To be restarted on BB and Imdur -Continue statin -Per cardiology note, he contacted Dr. Matta, has seen the patient previously and patient too high risk for desensitization, even risky in the hospital setting. - EF 60-65%, diastolic dysfunction grade 1 -Recommend to discontinue heparin drip, monitor over 24 hours and if stable okay for discharge tomorrow. Acute renal injury Renal function improving Continue to follow BMP Left leg cellulitis, improving. Less erythematous and tender. Continue with Rocephin, tolerating well. Diabetes mellitus -Off insulin pump Continue with Accu-Cheks before meals and at bedtime and insulin therapy Dyslipidemia - Atorvastatin DVT/ GI prophylaxis - Heparin drip and Pepcid Continue physical therapy, increase activity. Case management consultation for discharge planning, arrange home health care Possible discharge in the morning Discussed with patient in friend Discussed with RN Discussed with Dr. Keita This patient was seen by myself and Dr. Keita, this note is written on her behalf Problem Qualifiers (1) Hypotension: Qualified Code: I95.9 - Hypotension, unspecified hypotension type (2) Cellulitis: Qualified Code: L03.116 - Cellulitis of left lower extremity Joseline Colunga Mar 02, 2017 15:02
--- NOTE | 2017-03-02 15:05 | HHI.FF ---
Face to Face Verification Diagnosis: (1) CAD (coronary artery disease) (2) Hypotension (3) Aspirin allergy (4) Non-STEMI (non-ST elevated myocardial infarction) (5) Unresponsive (6) Acute respiratory failure with hypoxia Physical Therapy Order: Evaluate and Treat Home Health Nursing Order: Medical education Nursing assessment with vital signs I have seen patient Jaye Lane on 03/02/17. My clinical findings support the need for the requested home health care services because: Patient has SOB Deconditioned w/ increased weakness Limited ability to care for self Need for psychosocial assistance I certify that my clinical findings support that this patient is homebound because: Unsteady gait/balance Unsafe to leave home unassisted Poor cardiac reserve Joseline Colunga [facility] Mar 02, 2017 15:05
[2017-03-02] MEDS ORDERED: PHENOL 1.4% SOLN 180 ML BTL OROPHARYNG PRN (15:15)
[2017-03-02] MEDS: ATORVASTATIN 40 MG TAB PO SCH (21:47)
[2017-03-03] VITALS (10 sets, daily range): BP systolic 118–162; BP diastolic 58–70; PULSE 90–105; RESP 16–18; TEMP 97.4–99.2; O2SAT 93–100
[2017-03-03] MEDS: CHLORHEXIDINE GLUCONATE 2 % 1 PACK (2 CLOTHS) TOP SCH (04:00)
[2017-03-03 04:42] LABS: APTT (PATIENT) 29.6 SEC (24.3-30.1)
[2017-03-03] MEDS: INSULIN ASPART SUPPLEMENTAL SCALE SQ SCH ×4 (06:41→20:44)
[2017-03-03] MEDS: ISOSORBIDE MONONITRATE 30 MG TAB PO SCH (06:46)
[2017-03-03] MEDS: CLOPIDOGREL 75 MG TAB PO SCH (08:58)
[2017-03-03] MEDS: cefTRIAXone INJ 1,000 MG in SODIUM CHLORIDE 0.9% INJ 100 ML IV SCH (08:58)
[2017-03-03] MEDS: FAMOTIDINE 20 MG/2 ML VIAL IV PUSH SCH ×2 (08:58→21:09)
[2017-03-03] MEDS: METOPROLOL SUCCINATE 50 MG EXTENDED RELEASE TAB PO SCH (08:59)
[2017-03-03] MEDS: DOCUSATE SODIUM 50 MG/SENNA 8.6 MG TAB PO SCH ×3 (08:59→21:09)
[2017-03-03] MEDS: SODIUM CHLORIDE 0.9% FLUSH 10 ML FLUSH SCH ×2 (09:00→21:00)
--- NOTE | 2017-03-03 09:59 | PD.CARD.PN ---
Subjective Subjective Remarks No chest pain, no shortness of breath Feels well, up and moving Objective Medications Current Medications Medications (Trade) Dose Ordered Sig/Rusty Route Start Time Stop Time Status Last Admin (NS Flush) 2 ml UNSCH PRN .XX 02/27/17 00:00 03/02/17 12:22 (NS Flush) 2 ml BID .XX 02/27/17 09:00 03/03/17 09:00 (Tylenol) 650 mg Q6H PRN PO 02/27/17 00:00 03/01/17 14:11 (Morphine Inj) 2 mg Q2H PRN IV 02/27/17 00:00 03/02/17 22:51 (Pepcid Inj) 20 mg Q12HR IV PUSH 02/27/17 09:00 03/03/17 08:58 (Ativan Inj) 2 mg Q4H PRN IV 02/27/17 00:00 (Zofran Inj) 4 mg Q6H PRN IV 02/27/17 00:00 (Reglan Inj) 10 mg Q6H PRN IV 02/27/17 00:00 Miscellaneous Information 1 Q361D XX 02/27/17 00:00 02/27/17 03:21 (Chlorhexidine 2% Cloth) 3 pack Taper DAILY@04 TOP 02/27/17 04:00 02/23/18 03:59 03/01/17 06:09 (Chlorhexidine 2% Cloth) 3 pack UNSCH PRN TOP 02/27/17 00:00 (Ankita-Colace) 1 tab BID PO 02/27/17 09:00 03/02/17 21:47 (Milk Of Magnesia Liq) 30 ml Q12H PRN PO 02/27/17 00:00 (Senokot) 17.2 mg Q12H PRN PO 02/27/17 00:00 (Dulcolax Supp) 10 mg DAILY PRN RECTAL 02/27/17 00:00 Lactulose 30 ml 30 ml DAILY PRN PO 02/27/17 00:00 (fentaNYL DRIP) 250 ml @ 0 mls/hr TITRATE IV 02/27/17 04:15 02/27/17 16:22 (D50w (Vial) Inj) 50 ml UNSCH PRN IV 02/27/17 05:45 Glucagon 1 mg 1 mg UNSCH PRN OTHER 02/27/17 05:45 (Rocephin Inj/NS Inj) 100 ml @ 200 mls/hr Q24H IV 02/27/17 09:00 03/03/17 08:58 (Plavix) 75 mg DAILY PO 02/27/17 09:00 03/03/17 08:58 (Imdur) 30 mg DAILY@07 PO 03/02/17 07:00 03/03/17 06:46 (Toprol Xl) 50 mg DAILY PO 03/01/17 13:00 03/03/17 08:59 (Lipitor) 40 mg HS PO 03/01/17 21:00 03/02/17 21:47 (Duragesic 50 Mcg Patch.72 Hr) 1 patch Q3D T-DERMAL 03/01/17 14:30 03/01/17 15:19 Miscellaneous Information 1 Q3D T-DERMAL 03/01/17 14:30 (Chloraseptic [place]) 2 spray Q2H PRN OROPHARYNG 03/02/17 15:15 Vital Signs / I&O Vital Signs Date Time Temp Pulse Resp B/P Pulse Ox O2 Delivery O2 Flow Rate FiO2 03/03/17 08:00 99.2 101 16 132/59 93 03/03/17 04:08 97.4 90 18 130/59 98 03/03/17 00:00 98.5 92 18 125/60 97 03/02/17 20:47 99.0 98 20 122/74 95 03/02/17 20:30 Nasal Cannula 2.00 03/02/17 18:05 90 Nasal Cannula 2.00 03/02/17 16:00 97.9 93 17 132/58 90 03/02/17 12:00 97.9 96 19 112/55 93 03/02/17 11:38 94 Nasal Cannula 2.00 I/O 03/02/17 03/02/17 03/02/17 03/03/17 03/03/17 03/03/17 07:00 15:00 23:00 07:00 15:00 23:00 Intake Total 344 ml 540 ml 380 ml 360 ml Output Total 480 ml Balance -136 ml 540 ml 380 ml 360 ml Intake Oral 240 ml 540 ml 380 ml 360 ml IV Total 104 ml Output Urine Total 480 ml # Voids 2 4 2 2 # Bowel Movements 1 2 Physical Exam GENERAL: NAD, AAOx3 SKIN: Warm and dry. HEAD: Atraumatic. Normocephalic. EYES: Pupils equal and round. No scleral icterus. No injection or drainage. ENT: No nasal bleeding or discharge. Mucous membranes pink and moist. NECK: Trachea midline. No JVD. CARDIOVASCULAR: Regular rate and rhythm. No murmurs noted RESPIRATORY: No accessory muscle use. Decreased breath sounds bilaterally. No wheezes noted GASTROINTESTINAL: Abdomen soft, non-tender, nondistended. Hepatic and splenic margins not palpable. MUSCULOSKELETAL: Trace edema bilaterally NEUROLOGICAL: No focal deficits Laboratory Laboratory Tests Test 03/03/17 03:21 Activated Partial 29.6 SEC Thromboplast Time Assessment and Plan Problem List: (1) Acute respiratory failure with hypoxia (2) Unresponsive (3) Non-STEMI (non-ST elevated myocardial infarction) (4) Hypotension (5) CAD (coronary artery disease) (6) Aspirin allergy Assessment and Plan 1) NSTEMI after respiratory distress (after taking Keflex/Bactrim) with oxygen saturation initially in the 50s and blood pressure of 71/42 before intubation NSTEMI felt to be Type 2 in nature Continue Plavix Plan DC Heparin today Not on ASA due to allergy 2) EF 60-65%, diastolic dysfunction grade 1 3) Hx of CAD with diffuse disease previously (2006) 4) Call placed to Dr. Main's office, saw the patient previously and note stating patient too high risk for desensitization, even risky in the hospital setting. 5) Discussed with the patient at length, agrees with medical management at this time as it appears unable to desensitize and stenting without ASA would be high risk (03/01/17) Will add back Imdur/Lipitor/Toprol Further discussion today (03/02/17), eventually we need to objectively view her coronary anatomy, wants to get stronger beforehand, so will plan medical management for now and follow up with Dr. Phelps outpatient for stress testing, if large area of ischemia then will plan cardiac catheterization and PCI if necessary Will consider secondary opinion for ASA desensitization 6) Doing well off heparin drip, continue medical management Plan discharge today Patient understands if any change to symptoms, then will come back to the hospital and plan will have to be reassessed about possible cath/PCI Problem Qualifiers (1) Hypotension: Qualified Code: I95.9 - Hypotension, unspecified hypotension type Han Barrow DO Mar 03, 2017 09:59
--- NOTE | 2017-03-03 13:46 | HHI.DCPOC ---
Discharge Care Plan Diagnosis: (1) Acute respiratory failure with hypoxia (2) CAD (coronary artery disease) (3) Hypotension (4) Aspirin allergy (5) Non-STEMI (non-ST elevated myocardial infarction) (6) Unresponsive (7) IDDM (insulin dependent diabetes mellitus) (8) Cellulitis (9) Acute kidney injury (10) possible anaphalylactic reaction Your Health Problems Are: Chest Pain Shortness of Breath Goals to Promote Your Health * To prevent worsening of your condition and complications * To maintain your health at the optimal level Directions to Meet Your Goals Take your medications as prescribed Follow your dietary instruction Follow activity as directed Keep your appointments as scheduled Take your immunizations and boosters as scheduled If your symptoms worsen call your PCP, if no PCP go to Urgent Care Center or Emergency Room Smoking is Dangerous to Your Health. Avoid second hand smoke Call the 24-hour hour crisis hotline for domestic abuse at Joseline Colunga. [facility] Mar 03, 2017 13:46
--- NOTE | 2017-03-03 13:51 | HHI.PR ---
Subjective Subjective Remarks No fever No chest No shortness of breath walked around unit, did well sats 88 on RA after walking off heparin Review of Systems Constitutional Constitutional Remarks 12 point review of systems completed, negative except as noted above Vitals/Results Intake & Output 03/02/17 03/02/17 03/03/17 15:00 23:00 07:00 Intake Total 540 ml 380 ml 360 ml Balance 540 ml 380 ml 360 ml Intake Oral 540 ml 380 ml 360 ml # Voids 4 2 2 # Bowel Movements 2 Vital Signs Vital Signs Date Time Temp Pulse Resp B/P Pulse Ox O2 Delivery O2 Flow Rate FiO2 03/03/17 12:00 98.6 103 16 118/58 93 03/03/17 08:15 Nasal Cannula 2.00 03/03/17 08:00 99.2 101 16 132/59 93 03/03/17 04:08 97.4 90 18 130/59 98 03/03/17 00:00 98.5 92 18 125/60 97 03/02/17 20:47 99.0 98 20 122/74 95 03/02/17 20:30 Nasal Cannula 2.00 03/02/17 18:05 90 Nasal Cannula 2.00 03/02/17 16:00 97.9 93 17 132/58 90 CBC/BMP: 03/02/17 0404 03/02/17 0404 Lab Results Laboratory Tests Test 03/03/17 03:21 Activated Partial 29.6 SEC Thromboplast Time Physical Exam General General Appearance: Well Developed, Well Nourished, No Acute Distress, Comfortable Eyes Eye Exam: Pupils Equal, Pupils Reactive Ears & Nose Ears & Nose Exam: Nasal Mucosa [place] Throat Throat Exam: Oral Mucosa [place] & Moist Neck Neck Exam: Neck Supple, Trachea Midline Pulmonary Resp Exam: Breath Sounds Equal Cardiology CV Exam: Regular, Good Perfusion Gastrointestinal/Abdomen GI Exam: Soft, Non-Tender, Bowel Sounds Present, Non-Distended Musculoskeletal MS Exam: Joints Intact Integumentary Skin Exam: Warm, Dry Skin Remarks Erythema to left lower extremity markedly improved, there is some noted around ankle medial aspect Extremeties Extremities Exam: Pedal Pulses Palpable, Trace Edema Neurologic Neuro Exam: Alert, Awake, Oriented, Speech Clear, Moving All Extremities, No Focal Deficits Psychiatric Psych Exam: Appropriate Responses VTE Prophylaxis VTE Prophylaxis Meds: Heparin PUD Prophylasis PUD Remarks Pepcid Assessment/Plan Problem List: (1) Acute respiratory failure with hypoxia Plan: resolved (2) Non-STEMI (non-ST elevated myocardial infarction) (3) Aspirin allergy (4) Hypotension (5) CAD (coronary artery disease) (6) IDDM (insulin dependent diabetes mellitus) (7) Cellulitis (8) possible anaphalylactic reaction (9) Acute kidney injury Assessment/Plan Acute respiratory failure possibly secondary to anaphylactic reaction, now extubated Patient took Keflex, Bactrim. -Continue with DuoNeb's Continue with supplemental oxygen to keep sats greater than 92 and we slowly Non-ST ND, possibly due to stress response from hypoxemia and respiratory failure Heparin was dc'd 03/02, no problems overnight, no cp, no sob -Appreciate cardiology input, at this time continue with medical management. Recommends outpatient follow-up for stress test. Will consider secondary opinion for ASA desensitization -Patient has severe allergy to aspirin, at this time continue with Plavix continue BB and Imdur -Continue statin -Per cardiology note, he contacted Dr. Matta, has seen the patient previously and patient too high risk for desensitization, even risky in the hospital setting. - EF 60-65%, diastolic dysfunction grade 1 -cleared by cardiology Acute renal injury Renal function improving Continue to follow BMP Left leg cellulitis, improving. Less erythematous and tender. Continue with Rocephin, tolerating well. Diabetes mellitus -Off insulin pump Continue with Accu-Cheks before meals and at bedtime and insulin therapy Dyslipidemia - Atorvastatin DVT/ GI prophylaxis - Heparin drip and Pepcid Continue physical therapy, increase activity. CM for dc planning, [facility], may need oxygen Walk test plan to dc today with [facility] F/U cardiology 1-2 weeks F/U PCP 1 week Diet -heart healthy Activity- as tolerated. Discussed with patient in friend Discussed with RN Discussed with Dr. Keita This patient was seen by myself and Dr. Keita, this note is written on her behalf Discharge Minutes: 45 Problem Qualifiers (1) Hypotension: Qualified Code: I95.9 - Hypotension, unspecified hypotension type (2) Cellulitis: Qualified Code: L03.116 - Cellulitis of left lower extremity Joseline Colunga Mar 03, 2017 13:51
--- NOTE | 2017-03-03 13:52 | HHI.DS ---
Discharge Summary Admission Date February 26, 2017 at 23:45 Discharge Date: Mar 04, 2017 Admitting Diagnosis acute resp failure, unresponsive (1) Acute respiratory failure with hypoxia (2) Non-STEMI (non-ST elevated myocardial infarction) (3) CAD (coronary artery disease) (4) Hypotension (5) Aspirin allergy (6) Unresponsive (7) IDDM (insulin dependent diabetes mellitus) (8) Cellulitis (9) Acute kidney injury (10) possible anaphalylactic reaction CBC/BMP: 03/02/17 0404 03/02/17 0404 Significant Findings Laboratory Tests Test 03/01/17 03/01/17 03/01/17 03/01/17 03:20 08:29 17:01 22:41 Chloride Level 110 MEQ/L (98-107) Estimat Glomerular Filtration 74 ML/MIN (>89) Rate Random Glucose 142 MG/DL (74-106) Activated Partial 36.5 SEC 41.8 SEC 40.6 SEC Thromboplast Time (24.3-30.1) (24.3-30.1) (24.3-30.1) Test 03/02/17 04:04 Red Blood Count 3.34 MIL/MM3 (4.00-5.30) Hemoglobin 9.3 GM/DL (11.6-15.3) Hematocrit 28.1 % (35.0-46.0) Neutrophils (%) (Auto) 75.7 % (16.0-70.0) Monocytes (%) (Auto) 10.9 % (0.0-8.0) Lymphocytes # (Auto) 0.9 TH/MM3 (1.0-4.8) Activated Partial 47.1 SEC Thromboplast Time (24.3-30.1) Estimat Glomerular Filtration 71 ML/MIN (>89) Rate Random Glucose 224 MG/DL (74-106) Calcium Level 8.3 MG/DL (8.5-10.1) Direct Bilirubin 0.3 MG/DL (0.0-0.2) Aspartate Amino Transf 38 U/L (15-37) (AST/SGOT) Troponin I 7.59 NG/ML (0.02-0.05) Total Protein 5.7 GM/DL (6.4-8.2) Albumin 2.1 GM/DL (3.4-5.0) Imaging Last Impressions Head CT 02/26/17 0000 Signed Impressions: Service Date/Time: Monday, February 27, 2017 00:46 - CONCLUSION: No acute intracranial findings. Best Villanueva MD Chest X-Ray 02/26/17 0000 Signed Impressions: Service Date/Time: Sunday, February 26, 2017 23:27 - CONCLUSION: Satisfactory ET tube position. Mild left base parenchymal opacity. Best Villanueva MD Hospital Course 61-year-old female with past medical history of diabetes coronary artery disease dyslipidemia hypothyroidism previously hyperthyroidism treated with radioactive iodine, presents now with altered mental status and unresponsiveness. She was intubated in the emergency department for airway protection as well severe hypoxemia. She presented hypotensive however shortly after intubation and stabilization of her airway and oxygenation her blood pressure improved with a MAP above 65. Patient was comatose unresponsive and no history obtainable initially. Required admission to ICU with senior cognos developer consultation. More information was obtained later during admission, apparently episode occur after patient ingested Bactrim. She developed difficulty breathing and became unresponsive. She had underlying cellulitis to the left leg. She was also noted with left lower lobe infiltrate. Patient was put on empiric antibiotics, cultures were followed closely Patient was eventually extubated, she had no further respiratory distress. She was alert and oriented 3 after extubation. Laboratory workup done also show patient was positive for non-STEMI. Possibly due to stress response from hypoxemia and respiratory failure. Was put on a heparin drip. Cardiology was consulted. --Appreciate cardiology input, at this time continued with medical management. Recommended outpatient follow-up for stress test. Will consider secondary opinion for ASA desensitization -Patient has severe allergy to aspirin, put on Plavix. After extubation, she was put back on BB and Imdur -Continued statin -Heparin was discontinued on 03/02/2017 -Per cardiology note, he contacted Dr. Matta, had seen the patient previously and patient too high risk for desensitization, even risky in the hospital setting. - EF 60-65%, diastolic dysfunction grade 1 -cleared by cardiology -Patient had no chest pain, shortness of breath. Instructed to return to Hospital she develop any cardiac symptoms. Acute renal injury during initial presentation. -Given IV fluid Renal function improved -BMP was monitored Left leg cellulitis, improved. Less erythematous and tender. initially put on Rocephin, no reaction noted. Was discharged home on po abx, doxy -cellulitis improved Diabetes mellitus -Off insulin pump urine hospitalization Put on Accu-Cheks before meals and at bedtime and insulin therapy Dyslipidemia - Atorvastatin was continued DVT/ GI prophylaxis - Heparin drip and Pepcid Ordered physical therapy, increased activity. She tolerated well. CM for dc planning, [facility], did not need oxygen per walk test Pt. was expected to be dc on 03/03, started PO Keflex. Allergic reaction to Keflex 03/03 -pt. required tx to ICU 03/02, given Solumedrol and Benadryl -stable next day, no respiratory distress. No swallowing difficulties. Facial swelling improved -Started on Doxycycline, she had before and no reaction. She was given first dose and did well Pt. discharged home with [facility] in stable condition Instructed to: F/U cardiology 1-2 weeks F/U PCP 1 week Diet -heart healthy Activity- as tolerated. Pt Condition on Discharge: Stable Discharge Disposition: Disch w/ Home Health Serv Discharge Instructions DIET: Follow Instructions for: Heart Healthy Diet, Diabetic Diet Activities you can perform: Weight Bearing as Mary [place] Follow up Referrals: Cardiology with Gonzalo Phelps MD PCP Follow-up Continued Medications: Amitriptyline (Amitriptyline) 50 Mg Tab 50 MG PO HS TAB Atorvastatin (Atorvastatin) 40 Mg Tab 40 MG PO HS Cholesterol Management #30 Ref 0 TAB Bupropion ER 12 HR (Smoking Deterrent) (Bupropion Sr 12 HR) 150 Mg Tab 300 MG PO DAILY Take 1 tablet daily x 3 days then twice daily thereafter. TAB Clopidogrel (Clopidogrel) 75 Mg Tab 75 MG PO DAILY Blood Clot Prevention #30 Ref 0 TAB Fenofibrate (Fenofibrate) 160 Mg Tab 160 MG PO DAILY #30 Ref 0 TAB Isosorbide Mononitrate ER (Isosorbide Mononitrate ER) 30 Mg Sofia 30 MG PO DAILY Prevent Chest Pain #30 Ref 0 TAB Levothyroxine (Synthroid) 200 Mcg Tab 200 MCG PO DAILY Thyroid #30 Ref 0 TAB Losartan (Losartan) 100 Mg Tab 100 MG PO DAILY Blood Pressure Management #30 Ref 0 TAB Metoprolol Succinate ER 24 HR (Metoprolol Succinate ER 24 HR) 50 Mg Tab 50 MG PO DAILY #30 Ref 0 TAB Multiple Vitamin (Multiple Vitamin) 1 Tab 1 TAB PO DAILY Nutritional Supplement Ref 0 TAB [place]-3 Fatty Acids (Fish Oil) 1,000 Mg Cap Pantoprazole (Protonix) 40 Mg Tab 40 MG PO DAILY Reflux #30 Ref 0 TAB ([calcium]) 1 TAB PO DAILY ([Insulin Pump]) .8 SQ DIRECTED HUMALOG BASAL INFUSION .8/HR WITH PRN BOLUSES Discontinued Medications: Cephalexin (Keflex) 250 Mg Cap 500 MG PO Q6H Infection Ref 0 CAP Sulfamethoxazole-Trimethoprim (Bactrim DS) 800-160 Mg Tab 1 TAB PO BID Infection #14 Ref 0 TAB Joseline Colunga Mar 03, 2017 13:52
[2017-03-03] MEDS ORDERED: OXYGENTANK NAS.CANULA (14:01)
[2017-03-03] MEDS ORDERED: CEPHALEXIN MONOHYDRATE 500 MG CAP PO SCH (16:30)
[2017-03-03] MEDS ORDERED: diphenhydrAMINE HCL 50 MG/ML VIAL ONE (17:21)
[2017-03-03] MEDS ORDERED: methylPREDNISolone SOD SUCC 125 MG/2 ML VIAL IV STA (17:25)
[2017-03-03] MEDS ORDERED: RESP: ALBUTEROL 2.5 MG/IPRATROPIUM 0.5 MG NEB (PRN) NEB (17:30)
[2017-03-03] MEDS ORDERED: methylPREDNISolone SOD SUCC 125 MG/2 ML VIAL IV PUSH ONE (17:30)
[2017-03-03] MEDS ORDERED: RESP: ALBUTEROL 2.5 MG/IPRATROPIUM 0.5 MG NEB (SCH) NEB ONE (17:30)
[2017-03-03] MEDS ORDERED: diphenhydrAMINE HCL 50 MG/ML VIAL IV PUSH ONE (17:30)
[2017-03-03] MEDS ORDERED: diphenhydrAMINE HCL 50 MG/ML VIAL IV PUSH PRN (17:30)
--- NOTE | 2017-03-03 18:03 | HHI.PR ---
Addendum to Inpatient Note Addendum Reason: Additional Documentation Additional Information Received stat call to floor to evaluate patient. Patient received first dose of Keflex. Patient complaining of coughing, facial swelling. Sats 92-93% on 2 L. No airway compromise was noted. No stridor. Stat Solu-Medrol 125 IV push, Benadryl 50 mg IV push were given. Patient transferred to the intensive care unit for closer monitoring. Patient remained alert, awake oriented 3. She verbalized understanding. Hemodynamically stable on transfer Discussed with patient and family at length, we will monitor patient overnight and if stable will discharge tomorrow. Discussed with attending, Dr. Keita. Joseline Colunga Mar 03, 2017 18:03
[2017-03-03] MEDS: RESP: ALBUTEROL 2.5 MG/IPRATROPIUM 0.5 MG NEB (SCH) NEB (19:52)
[2017-03-03] MEDS: ATORVASTATIN 40 MG TAB PO SCH (21:09)
[2017-03-03] MEDS: methylPREDNISolone SOD SUCC 40 MG/1 ML VIAL IV PUSH SCH (23:37)
[2017-03-04] VITALS (12 sets, daily range): BP systolic 122–158; BP diastolic 67–71; PULSE 76–97; RESP 14–19; TEMP 98–98.5; O2SAT 92–96
[2017-03-04] MEDS: CHLORHEXIDINE GLUCONATE 2 % 1 PACK (2 CLOTHS) TOP SCH (04:00)
[2017-03-04] MEDS: methylPREDNISolone SOD SUCC 40 MG/1 ML VIAL IV PUSH SCH ×2 (04:34→11:33)
[2017-03-04] MEDS: ISOSORBIDE MONONITRATE 30 MG TAB PO SCH (06:48)
[2017-03-04] MEDS: INSULIN ASPART SUPPLEMENTAL SCALE SQ SCH ×3 (06:53→16:24)
[2017-03-04] MEDS: RESP: ALBUTEROL 2.5 MG/IPRATROPIUM 0.5 MG NEB (SCH) NEB ×2 (07:17→10:44)
[2017-03-04] MEDS: CLOPIDOGREL 75 MG TAB PO SCH (08:57)
[2017-03-04] MEDS: METOPROLOL SUCCINATE 50 MG EXTENDED RELEASE TAB PO SCH (08:57)
[2017-03-04] MEDS: FAMOTIDINE 20 MG/2 ML VIAL IV PUSH SCH (08:58)
[2017-03-04] MEDS: DOCUSATE SODIUM 50 MG/SENNA 8.6 MG TAB PO SCH (08:58)
[2017-03-04] MEDS: SODIUM CHLORIDE 0.9% FLUSH 10 ML FLUSH SCH (09:01)
--- NOTE | 2017-03-04 10:29 | HHI.PR ---
Subjective Subjective Remarks DC held had allergic reaction to Keflex, c/o arms tingling, cough, sob, and facial swelling tx to ICU overnight, stable, no resp. distress currently off oxygen, sats 94% no cp no cough feels "great" eating okay, no difficulty swallowing left foot with mild swelling and erythema no fever Review of Systems Constitutional Constitutional Remarks 12 point review of systems completed, negative except as noted above Vitals/Results Intake & Output 03/03/17 03/03/17 03/04/17 15:00 23:00 07:00 Intake Total 240 ml 360 ml 460 ml Balance 240 ml 360 ml 460 ml Intake Oral 240 ml 360 ml 460 ml # Voids 3 1 1 # Bowel Movements 0 1 Vital Signs Vital Signs Date Time Temp Pulse Resp B/P Pulse Ox O2 Delivery O2 Flow Rate FiO2 03/04/17 07:17 96 Nasal Cannula 2.00 03/04/17 06:00 88 03/04/17 04:00 98.1 84 14 150/67 95 03/04/17 04:00 84 03/04/17 02:00 76 03/04/17 00:00 94 03/04/17 00:00 98.5 94 19 122/71 95 03/03/17 22:00 102 03/03/17 20:00 98.3 90 17 139/64 100 03/03/17 20:00 90 03/03/17 19:53 95 Nasal Cannula 2.00 03/03/17 19:00 97 Nasal Cannula 2.00 03/03/17 18:00 98.6 105 18 162/70 96 03/03/17 16:00 98.2 98 16 135/65 94 03/03/17 12:00 98.6 103 16 118/58 93 CBC/BMP: 03/02/17 0404 03/02/17 0404 Physical Exam General General Appearance: Well Developed, Well Nourished, No Acute Distress, Comfortable Eyes Eye Exam: Pupils Equal, Pupils Reactive Ears & Nose Ears & Nose Exam: Nasal Mucosa [place] Throat Throat Exam: Oral Mucosa [place] & Moist Neck Neck Exam: Neck Supple, Trachea Midline Pulmonary Resp Exam: Breath Sounds Equal Cardiology CV Exam: Regular, Good Perfusion Gastrointestinal/Abdomen GI Exam: Soft, Non-Tender, Bowel Sounds Present, Non-Distended Musculoskeletal MS Exam: Joints Intact Integumentary Skin Exam: Warm, Dry Skin Remarks Erythema to left lower extremity markedly improved, there is some noted around ankle medial aspect Extremeties Extremities Exam: Pedal Pulses Palpable, Trace Edema Neurologic Neuro Exam: Alert, Awake, Oriented, Speech Clear, Moving All Extremities, No Focal Deficits Psychiatric Psych Exam: Appropriate Responses VTE Prophylaxis VTE Prophylaxis Meds: Heparin PUD Prophylasis PUD Remarks Pepcid Assessment/Plan Problem List: (1) Acute respiratory failure with hypoxia Plan: resolved (2) Non-STEMI (non-ST elevated myocardial infarction) (3) Aspirin allergy (4) Hypotension (5) CAD (coronary artery disease) (6) IDDM (insulin dependent diabetes mellitus) (7) Cellulitis (8) possible anaphalylactic reaction (9) Acute kidney injury Assessment/Plan Acute respiratory failure possibly secondary to anaphylactic reaction, now extubated Patient took Keflex, Bactrim. -Continue with DuoNeb's Continue with supplemental oxygen to keep sats greater than 92 and we slowly Allergic reaction to Keflex 03/02 -pt. required tx to ICU 03/02, given Solumedrol and Benadryl -stable today, no respiratory distress. No swallowing difficulties. Facial swelling improved Non-ST MA, possibly due to stress response from hypoxemia and respiratory failure Heparin was dc'd 03/02, no problems overnight, no cp, no sob -Appreciate cardiology input, at this time continue with medical management. Recommends outpatient follow-up for stress test. Will consider secondary opinion for ASA desensitization -Patient has severe allergy to aspirin, at this time continue with Plavix continue BB and Imdur -Continue statin -Per cardiology note, he contacted Dr. Matta, has seen the patient previously and patient too high risk for desensitization, even risky in the hospital setting. - EF 60-65%, diastolic dysfunction grade 1 -cleared by cardiology Acute renal injury Renal function improving Continue to follow BMP Left leg cellulitis, improving. Less erythematous and tender. stopped Rocephin, yesterday had reaction to PO Keflex Diabetes mellitus -Off insulin pump Continue with Accu-Cheks before meals and at bedtime and insulin therapy Dyslipidemia - Atorvastatin DVT/ GI prophylaxis - Heparin drip and Pepcid Continue physical therapy, increase activity. CM for dc planning, [facility], walk test done, doesn't need oxygen DC cancelled yesterday, had reaction to PO Keflex. Stable today. Plan to dc later today. F/U cardiology 1-2 weeks F/U PCP 1 week Diet -heart healthy Activity- as tolerated. Discussed with patient Discussed with RN Discussed with Dr. Keita This patient was seen by myself and Dr. Keita, this note is written on her behalf Problem Qualifiers (1) Hypotension: Qualified Code: I95.9 - Hypotension, unspecified hypotension type (2) Cellulitis: Qualified Code: L03.116 - Cellulitis of left lower extremity Joseline Colunga [facility] Mar 04, 2017 10:29
--- NOTE | 2017-03-04 11:08 | PD.CARD.PN ---
Subjective Subjective Remarks Discharge held up yesterday secondary to allergic reaction to Keflex Feels great today, no chest pain/SOB Objective Medications Current Medications Medications (Trade) Dose Ordered Sig/Rusty Route Start Time Stop Time Status Last Admin (NS Flush) 2 ml UNSCH PRN .XX 02/27/17 00:00 03/02/17 12:22 (NS Flush) 2 ml BID .XX 02/27/17 09:00 03/04/17 09:01 (Tylenol) 650 mg Q6H PRN PO 02/27/17 00:00 03/01/17 14:11 (Morphine Inj) 2 mg Q2H PRN IV 02/27/17 00:00 03/02/17 22:51 (Pepcid Inj) 20 mg Q12HR IV PUSH 02/27/17 09:00 03/04/17 08:58 (Ativan Inj) 2 mg Q4H PRN IV 02/27/17 00:00 (Zofran Inj) 4 mg Q6H PRN IV 02/27/17 00:00 (Reglan Inj) 10 mg Q6H PRN IV 02/27/17 00:00 Miscellaneous Information 1 Q361D XX 02/27/17 00:00 02/27/17 03:21 (Chlorhexidine 2% Cloth) Taper DAILY@04 TOP 02/27/17 04:00 02/23/18 03:59 03/01/17 06:09 (Chlorhexidine 2% Cloth) 3 pack UNSCH PRN TOP 02/27/17 00:00 (Ankita-Colace) 1 tab BID PO 02/27/17 09:00 03/02/17 21:47 (Milk Of Magnesia Liq) 30 ml Q12H PRN PO 02/27/17 00:00 (Senokot) 17.2 mg Q12H PRN PO 02/27/17 00:00 (Dulcolax Supp) 10 mg DAILY PRN RECTAL 02/27/17 00:00 Lactulose 30 ml 30 ml DAILY PRN PO 02/27/17 00:00 (fentaNYL DRIP) 250 ml @ 0 mls/hr TITRATE IV 02/27/17 04:15 02/27/17 16:22 (D50w (Vial) Inj) 50 ml UNSCH PRN IV 02/27/17 05:45 (Glucagon Inj) 1 mg UNSCH PRN OTHER 02/27/17 05:45 (Plavix) 75 mg DAILY PO 02/27/17 09:00 03/04/17 08:57 (Imdur) 30 mg DAILY@07 PO 03/02/17 07:00 03/04/17 06:48 (Toprol Xl) 50 mg DAILY PO 03/01/17 13:00 03/04/17 08:57 (Lipitor) 40 mg HS PO 03/01/17 21:00 03/03/17 21:09 (Duragesic 50 Mcg Patch.72 Hr) 1 patch Q3D T-DERMAL 03/01/17 14:30 03/01/17 15:19 Miscellaneous Information 1 Q3D T-DERMAL 03/01/17 14:30 (Chloraseptic [place]) 2 spray Q2H PRN OROPHARYNG 03/02/17 15:15 (Benadryl Inj) 25 mg Q6H PRN IV PUSH 03/03/17 17:30 (SoluMEDROL INJ) 60 mg Q6H IV PUSH 03/03/17 23:00 03/04/17 04:34 Vital Signs / I&O Vital Signs Date Time Temp Pulse Resp B/P Pulse Ox O2 Delivery O2 Flow Rate FiO2 03/04/17 10:00 93 03/04/17 08:00 98.4 88 16 158/68 94 03/04/17 08:00 86 03/04/17 07:17 96 Nasal Cannula 2.00 03/04/17 07:00 96 Room Air 03/04/17 06:00 88 03/04/17 04:00 98.1 84 14 150/67 95 03/04/17 04:00 84 03/04/17 02:00 76 03/04/17 00:00 94 03/04/17 00:00 98.5 94 19 122/71 95 03/03/17 22:00 102 03/03/17 20:00 98.3 90 17 139/64 100 03/03/17 20:00 90 03/03/17 19:53 95 Nasal Cannula 2.00 03/03/17 19:00 97 Nasal Cannula 2.00 03/03/17 18:00 98.6 105 18 162/70 96 03/03/17 16:00 98.2 98 16 135/65 94 03/03/17 12:00 98.6 103 16 118/58 93 I/O 03/03/17 03/03/17 03/03/17 03/04/17 03/04/17 03/04/17 07:00 15:00 23:00 07:00 15:00 23:00 Intake Total 360 ml 240 ml 360 ml 460 ml Balance 360 ml 240 ml 360 ml 460 ml Intake Oral 360 ml 240 ml 360 ml 460 ml # Voids 2 3 1 1 # Bowel Movements 0 1 Physical Exam GENERAL: NAD, AAOx3 SKIN: Warm and dry. HEAD: Atraumatic. Normocephalic. EYES: Pupils equal and round. No scleral icterus. No injection or drainage. ENT: No nasal bleeding or discharge. Mucous membranes pink and moist. NECK: Trachea midline. No JVD. CARDIOVASCULAR: Regular rate and rhythm. No murmurs noted RESPIRATORY: No accessory muscle use. CTA B/L GASTROINTESTINAL: Abdomen soft, non-tender, nondistended. Hepatic and splenic margins not palpable. MUSCULOSKELETAL: Trace edema bilaterally NEUROLOGICAL: No focal deficits Assessment and Plan Problem List: (1) Acute respiratory failure with hypoxia (2) Unresponsive (3) Non-STEMI (non-ST elevated myocardial infarction) (4) Hypotension (5) CAD (coronary artery disease) (6) Aspirin allergy Assessment and Plan 1) NSTEMI after respiratory distress (after taking Keflex/Bactrim) with oxygen saturation initially in the 50s and blood pressure of 71/42 before intubation NSTEMI felt to be Type 2 in nature Continue Plavix Plan DC Heparin today Not on ASA due to allergy Second reaction to Keflex 2) EF 60-65%, diastolic dysfunction grade 1 3) Hx of CAD with diffuse disease previously (2006) 4) Call placed to Dr. Main's office, saw the patient previously and note stating patient too high risk for desensitization, even risky in the hospital setting. 5) Discussed with the patient at length, agrees with medical management at this time as it appears unable to desensitize and stenting without ASA would be high risk (03/01/17) Will add back Imdur/Lipitor/Toprol Further discussion today (03/02/17), eventually we need to objectively view her coronary anatomy, wants to get stronger beforehand, so will plan medical management for now and follow up with Dr. Phelps outpatient for stress testing, if large area of ischemia then will plan cardiac catheterization and PCI if necessary Will consider secondary opinion for ASA desensitization 6) Doing well off heparin drip, continue medical management Plan discharge today Patient understands if any change to symptoms, then will come back to the hospital and plan will have to be reassessed about possible cath/PCI Problem Qualifiers (1) Hypotension: Qualified Code: I95.9 - Hypotension, unspecified hypotension type Han Barrow DO Mar 04, 2017 11:08
[2017-03-04] MEDS: REMOVE OLD PATCH T-DERMAL SCH (14:30)
[2017-03-04] MEDS ORDERED: DOXY1CAP74 PO (15:46)
[2017-03-04] MEDS ORDERED: DOXYCYCLINE HYCLATE 100 MG TAB PO SCH (16:00)
[2017-03-04] MEDS: fentaNYL 50 MCG/HR PATCH T-DERMAL SCH (16:25)
== END 2017-03-04 19:20 | disposition home or self-care (01) | DRG 189 ==
LOC: NEPE 22:48 → NEDA 23:45 → N03A 02-27 01:34 → N07A 03-01 20:25 → N03A 03-03 17:51
PROVIDERS: ADMIT Internal Medicine Critical Care Medicine; ATTEND Internal Medicine Critical Care Medicine
DX: J96.01 Acute respiratory failure with hypoxia (principal); I21.4 Non-ST elevation (NSTEMI) myocardial infarction; R40.20 Unspecified coma; Z99.11 Dependence on respirator [ventilator] status; N17.9 Acute kidney failure, unspecified; L03.115 Cellulitis of right lower limb; T78.2XXA Anaphylactic shock, unspecified, initial encounter; L03.116 Cellulitis of left lower limb; D64.9 Anemia, unspecified; E11.9 Type 2 diabetes mellitus without complications; I10 Essential (primary) hypertension; E03.9 Hypothyroidism, unspecified; E78.5 Hyperlipidemia, unspecified; I25.10 Atherosclerotic heart disease of native coronary artery without angina pectoris; I25.2 Old myocardial infarction; K21.9 Gastro-esophageal reflux disease without esophagitis; Z79.4 Long term (current) use of insulin; Z79.02 Long term (current) use of antithrombotics/antiplatelets; Z95.5 Presence of coronary angioplasty implant and graft; Z96.41 Presence of insulin pump (external) (internal); Y84.8 Other medical procedures as the cause of abnormal reaction of the patient, or of later complication, without mention of misadventure at the time of the procedure; T36.1X5A Adverse effect of cephalosporins and other beta-lactam antibiotics, initial encounter
CPT/HCPCS: 31500; 36600; 51702; 70450; 71010; 80048; 80076; 80307; 81001; 82140; 82550; 82552; 82805; 82948; 84484; 85025; 85027; 85610; 85730; 87640; 87641; 93005; 93306; 94002; 94003; 94150; 94620; 94640; 94664; 95819; 96374; J0330; J0696; J1200; J1644; J1815; J1956; J2250; J2270; J2920; J2930; J3010; J7030